=== PATIENT | male | born 1960 | race Caucasian/White ===

== ENCOUNTER 2018-05-26 16:49 | Emergency (ER) | payer SELFPAY ==
[~2018-05-26] VITALS: Ht 172.7 cm; Wt 115.9 kg
[2018-05-26 16:51] VITALS: Ht 172.7 cm; Wt 115.9 kg
[2018-05-26] MEDS ORDERED: ALDACTONE25 MG PO (16:54)
[2018-05-26] MEDS ORDERED: COREG 3.1253.125 MG PO (16:54)
[2018-05-26] MEDS ORDERED: LOW DOSE ASPIRI81 M1 PO (16:55)
[2018-05-26] MEDS ORDERED: CYMBALTA30 MG PO (16:55)
[2018-05-26] MEDS ORDERED: TERAZOSIN HCL2 MG PO (16:56)
[2018-05-26] MEDS ORDERED: ZESTRIL40 MG PO (16:57)
[2018-05-26] MEDS ORDERED: GLUCOPHAGE1000 MG PO (16:58)
[2018-05-26] MEDS ORDERED: ZETIA10 MG PO (16:58)
[2018-05-26] MEDS ORDERED: RANEXA500 MG PO (16:59)
[2018-05-26] MEDS ORDERED: COREG12.5 MG PO (16:59)
[2018-05-26] MEDS ORDERED: ISOSORBIDE DINI10 MG PO (17:00)
[2018-05-26] MEDS ORDERED: FUROSEMIDE20 MG PO (17:01)
[2018-05-26] MEDS ORDERED: GLIPIZIDE10 MG PO (17:01)
[2018-05-26] MEDS ORDERED: LIPITOR80 MG PO (17:01)
[2018-05-26] MEDS ORDERED: ARTIFICIAL TEAR15 ML EACH EYE (17:02)
[2018-05-26] MEDS ORDERED: VOLTAREN75 MG PO (20:05)
[2018-05-26] MEDS ORDERED: BACLOFEN20 M1 PO (20:05)
[2018-05-26 20:39] VITALS: BP 145/75
== END 2018-05-26 20:39 | disposition home or self-care (01) ==
LOC: D.ER 16:49
DX: M54.5 Low back pain (principal); W18.2XXA Fall in (into) shower or empty bathtub, initial encounter; Y93.E1 Activity, personal bathing and showering; Y92.012 Bathroom of single-family (private) house as the place of occurrence of the external cause; E11.9 Type 2 diabetes mellitus without complications; I11.0 Hypertensive heart disease with heart failure; I50.9 Heart failure, unspecified; Z95.1 Presence of aortocoronary bypass graft

== ENCOUNTER 2020-01-14 21:29 | Inpatient (IN) | payer MEDICAID ==
[~2020-01-14] VITALS: Ht 152.4 cm; Wt 104.5 kg
--- NOTE | ~2020-01-14 | HEMODYNAMI ---
PATIENT:NAHID ALARCON MEDICAL RECORD: [id number] : 64 LOCATION:[facility] D.2114 ADMISSION DATE: 01/15/20 Generatedon:01/15/202013:35 Patient name: NAHID ALARCON Patient #: [id number] : 1960 Date of study: 01/15/2020 Page: Of Hemodynamic Procedure Report Patient Data Patient Demographics Procedure consent was obtained First Name: NAHID Gender: Male Last Name: AGNES : 1960 Patient #: [id number] Age: 59 year(s) Race: SSN: [id number] Additional ID: [id number] Contact details Address: [facility] UNKNOWN ADDRESS State: [place] City: [place] Zip code: [address] Past Medical History Allergies: No known allergies Admission Admission Data Admission Date: 01/15/2020 Admission Time: 0:11 Arrival Date: 01/15/2020 Arrival Time: 0:00 Admit Source: Other Insurance Payor: Medicaid Room #: D.2114 [facility] #: [id number] Height (in.): 60 BSA: 1.98 (m2) Height (cm.): 152.4 BMI: 45.01 (kg/m2) Weight (lbs.): 230.47 Weight (kg.): 104.54 Lab Results Lab Result Date: 01/15/2020 Lab Result Time: 0:00 Biochemistry Name Units Result Min Max BUN mg/dl 40 --(----)-* 7 18 CK-MB ng/ml 2.1 --(--*-)-- 0 3.6 Creatinine mg/dl 1.7 --(----)-* 0.6 1.3 eGFR ml/min 44 *-(----)-- 90 120 NONAFRICAN Troponin l ng/ml 0.017 --(-*--)-- 0 0.06 CBC Name Units Result Min Max Hematocrit % 40.4 -*(----)-- 42 54 Hemoglobin g/dl 13.2 -*(----)-- 13.5 17.5 Procedure Procedure Types Cath Procedure Diagnostic Procedure [facility] w/Coronaries w/Grafts Sedation Charges Moderate Sedation up to 15 minutes Procedure Description Procedure Date Procedure Date: 01/15/2020 Procedure Start Time: 13:19 Procedure End Time: 13:35 Procedure Staff Name Function Leticia Castaneda RT Monitor Doreen Huang RT Scrub Amari Rivera RN Nurse Clemente Velez MD Performing Physician Procedure Data Cath Procedure Fluoroscopy Diagnostic fluoroscopy Total fluoroscopy Time: 2.2 time: 2.2 min min Diagnostic fluoroscopy Total fluoroscopy dose: 886 dose: 886 mGy mGy Contrast Material Contrast Material Type Amount (ml) Isovue 370 88 Entry Location Entry Primary Successful Side Size Upsize Upsize Entry Closure Succes sful Closure Location (Fr) 1 (Fr) 2 (Fr) Remarks Device Remarks Femoral Right 5 Fr Exoseal artery Estimated blood loss: 5 ml Diagnostic catheters Device Type Used For End Catheter Placement MULTIPACK JL 4.0 5Fr Procedure catheter MULTIPACK 3DRC 5Fr Procedure catheter MULTIPACK Pigtail 5 Fr Procedure catheter Procedure Complications No complications Procedure Medications Medication Administration Route Dosage Oxygen etCO2 Nasal cannula 2 l/min Lidocaine 2% added to field 20 Heparin Flush Bag added to field 2 bags (1000units/500ml NS) 0.9% NaCl I.V. 100 ml/hr Versed I.V. 2 mg Fentanyl I.V. 50 mcg Versed I.V. 1 mg Fentanyl I.V. 50 mcg Versed I.V. 1 mg Hemodynamics Rest BSA: 1.98 (m2) HGB: 13.2 (g/dl) O2 Consumption: Estimated: 231.24 (ml/min) O2 Co nsumption indexed: Estimated:116.79 (ml/min/m) Heart Rate: 67 (bpm) Pressure Samples Time Site Value (mmHg) Purpose Heart Use Rate(bpm) 13:28 LV 70/6,7 Snapshot 72 13:28 AO 116/62(91) Pullback 73 13:28 LV 116/4,12 Pullback 73 Gradients Valve Time Site 1 Site 2 Mean SEP/DFP Peak To Heart Use (mmHg) (sec/min) Peak Rate (mmHg) (bpm) Aortic 13:28 LV AO 36 35 0 73 116/4,12 116/62(91) Calculations Valve P-P Mean Valve Index Valve Source Name Gradient Area Flow (cm2) Aortic 0 36 0 36 Snapshots Pre Cath Intra NCS Post Cath Vital Signs Time Heart Resp SPO2 etCO2 NIBP (mmHg) Rhythm Pain Sedation Rate (ipm) (%) (mmHg) Status Level (bpm) 12:43:03 72 16 96 0 No Cuff NSR 0 (11) 10(A) , No pain 12:47:29 78 14 94 0 134/67(91) NSR 0 (11) 10(A) , No pain 12:51:49 69 13 96 30.8 123/67(93) NSR 0 (11) 10(A) , No pain 12:56:09 67 15 99 30 139/68(106) NSR 0 (11) 10(A) , No pain 13:00:24 73 12 96 0 117/59(83) NSR 0 (11) 10(A) , No pain 13:04:42 79 11 92 29.3 120/63(98) NSR 0 (11) 10(A) , No pain 13:09:04 72 12 96 36.8 128/55(98) NSR 0 (11) 10(A) , No pain 13:13:20 67 13 98 32.3 130/69(93) NSR 0 (11) 10(A) , No pain 13:17:40 67 14 98 29.2 130/69(110) NSR 0 (11) 10(A) , No pain 13:21:56 73 14 96 34.5 123/68(97) NSR 0 (11) 9(A) , No pain 13:26:10 81 11 93 25.5 127/73(106) NSR 0 (11) 9(A) , No pain 13:30:30 69 11 97 27 147/73(105) NSR 0 (11) 10(A) , No pain 13:34:54 67 10 97 29.2 142/77(113) NSR 0 (11) 10(A) , No pain Medications Time Medication Route Dose Verified Delivered Reason Notes Eff ectiveness by by 12:42:34 Oxygen etCO2 2 Alexandre Buffie used for Nasal l/min Narendra Rivera blasting contract miner cannula 12:42:41 Lidocaine 2% added 20ml Alexandre Alexandre for local to vial Narendra Mackey MD anesthetic field 12:42:49 Heparin Flush added 2 Alexandre Alexandre used for Bag to bags Narendra Mackey MD procedure (1000units/500ml field NS) 12:42:59 0.9% NaCl I.V. 100 Alexandre Buffie Per ml/hr Narendra Rivera RN physician 13:18:46 Versed I.V. 2 mg Clemente Buffie for [facility] RN sedation 13:18:52 Fentanyl I.V. 50 Clemente Buffie for [facility] RN sedation 13:22:22 Versed I.V. 1 mg Clemente Buffie for [facility] RN sedation 13:22:27 Fentanyl I.V. 50 Clemente Buffie for [facility] RN sedation 13:27:31 Versed I.V. 1 mg Clemente Buffie for [facility] RN sedation Procedure Log Time Note 9:53:33 Informed consent obtained and on chart 9:54:16 Diagnostic Cath Status : Urgent 9:54:33 Time tracking: Regular hours (M-F 7:00 - 5:00) 9:54:38 Plan of Care:Hemodynamics will remain stable., Cardiac rhythm will remain stable., Comfort level will be maintained., Respiratory function will remain adequate., Patient/ family verbilizes understanding of procedure., Procedure tolerated without complication., Recovers from procedure without complications.. 12:12:23 Amari Rivera RN sent for patient. Start room use. 12:25:58 Risk of Mortality: 0.2 12:26:02 Risk of blood transfusion: 2.0 12:26:07 Risk of ZARINA: 7.1 12:39:05 Admit Source: Other 12:39:08 Procedure Status Elective Heart Cath (OP). 12:39:15 Patient received from Med II to CCL 1 Alert and oriented. Tansferred to table in Supine position. 12:39:16 Warm blankets applied, and lonnie hugger turned on for patient comfort. 12:39:17 Correct patient and procedure confirmed by team. 12:39:17 ECG and BP/O2 sat monitors applied to patient. 12:39:36 Pre-procedure instructions explained to patient. 12:39:37 Pre-op teaching completed and patient verbalized understanding. 12:39:38 H&P Date Dictated: 01/15/2020 Within 30 days and on chart.. 12:39:41 Family unavailable. 12:39:44 Patient NPO since Midnight. 12:39:52 Patient allergic to No known allergies 12:39:54 Is the patient allergic to Iodine/contrast media? No. 12:39:56 Was the patient premedicated? N/A 12:40:42 Lab Result : Creatinine 1.7 mg/dl 12::42 Lab Result : BUN 40 mg/dl 12:: Lab Result : CK-MB 2.1 ng/ml 12:: Lab Result : eGFR NONAFRICAN 44 ml/min 12:: Lab Result : Troponin l 0.017 ng/ml 12:: Lab Result : Hematocrit 40.4 % :: Lab Result : Hemoglobin 13.2 g/dl 12:41:54 Arrival Date: 01/15/2020 12:00:00 AM 12:41:58 Patient Height : 60 inches 12:42:02 Patient Weight : 230.47 lbs 12:42:11 Insurance Payor : Medicaid 12:42:20 Vital chart was started 12:42:34 Oxygen 2 l/min etCO2 Nasal cannula was administered by Amari Rivera RN; used for procedure; Verbal order read back and verified. 12:42:41 Lidocaine 2% 20ml vial added to field was administered by Alexandre Mackey MD; for local anesthetic; Verbal order read back and verified. 12:42:48 Lab results completed and on chart. 12:42:49 Heparin Flush Bag (1000units/500ml NS) 2 bags added to field was administered by Alexandre Mackey MD; used for procedure; Verbal order read back and verified. 12:42:51 Stress Test: no; N/A ? 12:42:53 Alarms reviewed by R. N. 12:42:54 Sharps counted by scrub and verified by R.N. 12:42:59 0.9% NaCl 100 ml/hr I.V. was administered by Amari Rivera RN; Per physician; Verbal order read back and verified. 12:43:13 Full Disclosure recording started 12:43:17 Rhythm: sinus rhythm 12:43:39 Is patient on blood thinner?No 12:43:41 Patient diabetic? Yes. 12:43:43 If diabetic: On Metformin? No 12:43:44 ----Pre-sedation anethsthesia assessment.---- 12:43:48 Previous problem with sedation/anesthesia? No ? 12:43:49 Snore? Yes 12:43:51 Sleep apnea? Unknown 12:43:52 Deviated septum? No 12:43:53 Opens mouth fully? Yes 12:43:54 Sticks out tongue? Yes 12:43:58 Airway obstruction? Yes CHF 12:44:02 Dentures? No ? 12:44:07 Pre procedure: right dorsailis pedis pulse 1+ Palpable, but thready & weak; easily obliterated 12:44:11 Patient pain scale 0/10 ?. 12:44:21 IV patent on arrival in left antecubital with 0.9% NaCl at [facility]. 12:44:26 Right groin area was prepped with chlora-prep and draped in sterile fashion 12:44:29 Use device set Femoral Dx 12:44:31 ACIST Syringe (88599) opened to sterile field. 12:44:31 Bag Decanter (2002S) opened to sterile field. 12:44:32 Medline Cath Pack ([id number]) opened to sterile field. 12:44:33 ACIST Hand Control (06041) opened to sterile field. 12:44:33 ACIST Manifold (47298) opened to sterile field. 12:44:34 DIAGNOSTIC Multipack 5Fr catheter set (HZ8736) opened to sterile field. 12:44:35 SHEATH 5FR [place] (HSO232) opened to sterile field. 12:44:35 EMERALD Guide Wire (599-558) opened to sterile field. 12:50:03 Baseline sample Acquired. 12:50:52 ACC Patient presents with Stable Angina CCS Anginal Class 2--Slight limitation of ordinary activity. 13:17:55 --------ALL STOP TIME OUT------ 13:17:56 Final Timeout: patient, procedure, and site verified with staff and physician. All members of the team are in agreement. 13:18:05 Right groin site verified by team. 13:18:31 Fire Safety Assessment: A--An alcohol-based skin anteseptic being used preoperatively., C--Open oxygen or nitrous oxide is being used., D--An ESU, laser, or fiber-optic light is being used. 13:18:35 Physical assessment completed. ASA score P 2 - A patient with mild systemic disease as per Clemente Velez MD. 13:18:38 3b) 30-44 Moderately reduced kidney function. 13:18:41 Maximum allowable contrast dose (3.7 X eGFR X 0.75)122 ml. 13:18:46 Versed 2 mg I.V. was administered by Amari Rivera RN; for sedation; Verbal order read back and verified. 13:18:52 Fentanyl 50 mcg I.V. was administered by Amari Rivera RN; for sedation; Verbal order read back and verified. 13:18:55 Sedation plan: IV Moderate Sedation Medication:Versed, Fentanyl 13:19:44 Procedure started. 13:19:49 Local anesthetic to right femoral artery with Lidocaine 2% by Clemente Velez MD.INITIAL ACCESS ONLY 13:20:54 A 5 Fr sheath was inserted into the Right Femoral artery 13:21:00 A MULTIPACK JL 4.0 5Fr catheter was advanced over the wire and used for Procedure. 13:21:36 LCA angiography performed. 13:21:38 Injector settings: Ml/sec: 3, Volume: 6, 13:22:17 Catheter removed. 13:22:22 Versed 1 mg I.V. was administered by Amari Rivera RN; for sedation; Verbal order read back and verified. 13:22:27 Fentanyl 50 mcg I.V. was administered by Amari Rivera RN; for sedation; Verbal order read back and verified. 13:22:37 A MULTIPACK 3DRC 5Fr catheter was advanced over the wire and used for Procedure. 13:22:59 RCA angiography performed. 13:23:01 Injector settings: Ml/sec: 3, Volume: 6, 13:23:09 ACCDominant side:Left 13:23:36 SVG to Diag angiography performed. 13:24:55 Catheter removed. 13:25:33 GUIDE 5FR AR1.0 catheter ([id number]) opened to sterile field. 13:26:45 HUERTA to LAD angiography performed. 13:27:31 Versed 1 mg I.V. was administered by Amari Rivera RN; for sedation; Verbal order read back and verified. 13:27:31 A MULTIPACK Pigtail 5 Fr catheter was advanced over the wire and used for Procedure. 13:27:36 LV gram done using GARCIA 13::57 Injector settings: Ml/sec: 5, Volume: 15, 13:28:09 LV hemodynamics recorded. 13:28:18 EF : 30 % 13:28:29 Catheter removed. 13:28:39 EXOSEAL 5Fr (EX500) opened to sterile field. 13:29:05 Sheath removed intact; hemostasis achieved with Exoseal to the Right Femoral artery. 13:29: Fluoroscopy time 02.20 minutes. 13:29:15 Flurop Dose total: 886 13:: Fluoroscopy dose: 886 mGy 13:: Dose Area Product 75975 mGy/cm. 13:: Contrast amount:Isovue 370 88ml. 13:29:29 Maximum allowable dose exceeded? No. 13:29:30 Sharps counted by scrub and verified by R.N. 13:29:31 Procedure ended.(Physican Out) 13:29:43 Post Procedure Pulses reassessed and unchanged 13:29:45 Post procedure: right dorsailis pedis pulse 1+ Palpable, but thready & weak; easily obliterated. 13:29:49 Post-procedure physical assessment completed. ASA score P 2 - A patient with mild systemic disease as per Clemente Velez MD. 13:29:53 Post procedure rhythm: unchanged. 13:30:31 Estimated blood loss: 5 ml 13:30:33 Post procedure instruction explained to patient.Patient verbalizes understanding. 13:30:34 Patient needs reinforcement of post procedure teaching. 13::57 Procedure type changed to Cath procedure, Diagnostic procedure, LHC, C w/Coronaries w/Grafts, Sedation Charges, Moderate Sedation up to 15 minutes 13:31:11 Procedure and supply charges have been captured, reviewed, submitted and are correct. 13:31:16 Procedure Complication : No complications 13:31:20 [facility] Findings: ASHA- will discuss options w/ pt 13:31:23 Operative report dictated upon procedure completion. 13:31:23 See physician's report for complete and final results. 13:31:26 Report given to [facility]. 13:31:29 Patient transfered to [facility] with Bed. 13:35:00 Vital chart was stopped 13:35:02 Procedure ended. 13:35:02 Full Disclosure recording stopped 13:35:06 End room use (Document Last) 13:35:20 End room use (Document Last) 13:35:35 End room use (Document Last) Device Usage Item Name Manufacture Quantity Catalog Hospital Part Current Minimal L ot# / Number Charge Number Stock Stock Serial# Code ACIST Acist 1 63178 419519 959190 483069 20 Syringe Medical (56863) Systems Inc Bag Microtek 1 2001S 556135 77687 318952 5 Decanter Medical Inc. () Medline Medline 1 [id number] 040938 24797 942557 5 Cath Pack ([id number]) ACIST Hand Acist 1 04329 046805 969080 891051 5 Control Medical (86247) Systems Inc ACIST Acist 1 55570 920465 279839 116959 5 Manifold Medical (88885) Systems Inc DIAGNOSTIC Cardinal 1 LZ9998 995311 74506 517234 30 Multipack Health 5Fr catheter set (CG6286) SHEATH 5FR Terumo 1 DZT361 733370 400024 832795 5 [place] (UJR122) EMERALD Cardinal 1 502-455 158667 013717 967282 5 Guide Wire Health (502-455) MULTIPACK Cardinal 1 405003 5 JL 4.0 5Fr Health catheter MULTIPACK Cardinal 1 078199 5 3DRC 5Fr Health catheter GUIDE 5FR Medtronic 1 KE8LX74 957773 760166 700939 1 AR1.0 catheter (BB5UO67) MULTIPACK Cardinal 1 964871 5 Pigtail 5 Health Fr catheter EXOSEAL 5Fr Cardinal 1 EX500 892518 801124 228637 10 (EX500) Health Signature Audit Melvin Stage Time Signature Unsigned Intra-Procedure 01/15/2020 Leticia Castaneda 1:35:20 PM RT(R) Intra-Procedure 01/15/2020 Amari Rivera RN 1:35:35 PM Intra-Procedure 01/15/2020 Clemente Rabago 1:35:50 PM Mark [place] [id number] [place] [address]
--- NOTE | 2020-01-14 19:25 | NUR ---
PT SITTING UP IN BED EATING A SANDWICH. DRESSING TO RIGHT GROIN FROM HEART CATH IS C/D/I. HE WANTS TO TAKE A SHOWER. LET HIM KNOW THAT HE NEEDS TO WAIT 24 HOURS AFTER HEART CATH FOR SHOWER BUT OFFERED TO GET HIM SUPPLIES TO SPONGE OFF. HE STATES HE WILL WAIT UNTIL TOMORROW AFTERNOON TO SHOWER. HE DENIES PAIN OR NEEDS. BED IS LOW AND CALL LIGHT WITHIN REACH.
[~2020-01-14 21:29] MED LIST: ALDACTONE25 MG PO; ARTIFICIAL TEAR15 ML EACH EYE; BACLOFEN20 M1 PO; COREG 3.1253.125 MG PO; COREG12.5 MG PO; CYMBALTA30 MG PO; FUROSEMIDE20 MG PO; GLIPIZIDE10 MG PO; GLUCOPHAGE1000 MG PO; ISOSORBIDE DINI10 MG PO; LIPITOR80 MG PO; LOW DOSE ASPIRI81 M1 PO; RANEXA500 MG PO; TERAZOSIN HCL2 MG PO; VOLTAREN75 MG PO; ZESTRIL40 MG PO; ZETIA10 MG PO
[2020-01-14 21:57] LABS: ANION GAP 8.1 mmol/L (8-16); APTT 29.2 SECONDS (22.8-39.4); CALCIUM 9.6 mg/dL (8.5-10.1); CARBON DIOXIDE 30.5 mmol/L (21.0-32.0); CREATININE - SERUM 1.7 mg/dL (0.6-1.3); INR 1.03 (0.85-1.17); POTASSIUM - SERUM 3.6 mmol/L (3.5-5.1); PROTIME 13.4 SECONDS (11.6-15.0)
[2020-01-14 21:58] LABS: BASOPHILS 0.5 % (0-2); EOSINOPHILS 3.2 % (0-7); HEMATOCRIT 40.4 % (42.0-54.0); HEMOGLOBIN 13.2 g/dL (13.5-17.5); IMMATURE GRANULOCYTES 0.1 % (0-5); LYMPHOCYTES 21.6 % (15-50); MCH 31.1 pg (26.0-34.0); MCHC 32.7 g/dL (31.0-37.0); MCV 95.1 fL (80.0-100.0); MONOCYTES 6.7 % (2-11); NEUTROPHILS 67.9 % (40-80); PLATELET COUNT 192 10x3/uL (130-400); RBC 4.25 10x6/uL (4.20-6.10); RDW 13.2 % (11.5-14.5); WBC 7.5 10x3/uL (4.8-10.8)
[2020-01-14 22:12] LABS: ALBUMIN 3.6 g/dL (3.4-5.0); BILIRUBIN - TOTAL 0.34 mg/dL (0.2-1.3); PROTEIN - SERUM 7.6 g/dL (6.4-8.2); TROPONIN-I 0.028 ng/mL (0.000-0.060)
[2020-01-14 23:54] VITALS: BP 143/68
[2020-01-15] VITALS (7 sets, daily range): BP systolic 132–220; BP diastolic 63–140; Ht 152.4 cm; Wt 104.5 kg
[2020-01-15 04:19] LABS: CKMB 2.1 U/L (0.0-3.6); CREATINE KINASE 83 UL (21-232)
[2020-01-15 04:25] LABS: TROPONIN-I < 0.017 ng/mL (0.000-0.060)
[2020-01-15 07:46] LABS: BASOPHILS 0.4 % (0-2); EOSINOPHILS 3.6 % (0-7); HEMATOCRIT 37.5 % (42.0-54.0); HEMOGLOBIN 12.3 g/dL (13.5-17.5); IMMATURE GRANULOCYTES 0.1 % (0-5); LYMPHOCYTES 25.2 % (15-50); MCH 31.1 pg (26.0-34.0); MCHC 32.8 g/dL (31.0-37.0); MCV 94.9 fL (80.0-100.0); MEAN PLATELET VOLUME 11.5 fL (7.4-10.4); MONOCYTES 8.4 % (2-11); NEUTROPHILS 62.3 % (40-80); PLATELET COUNT 184 10x3/uL (130-400); RBC 3.95 10x6/uL (4.20-6.10); RDW 13.1 % (11.5-14.5); WBC 7.1 10x3/uL (4.8-10.8)
[2020-01-15 07:49] LABS: ANION GAP 11.3 mmol/L (8-16); CALCIUM 9.3 mg/dL (8.5-10.1); CARBON DIOXIDE 27.2 mmol/L (21.0-32.0); CHOL - HDL RATIO 3.5 ratio (2.3-4.9); CREATININE - SERUM 1.6 mg/dL (0.6-1.3); POTASSIUM - SERUM 3.5 mmol/L (3.5-5.1)
--- NOTE | 2020-01-15 08:30 | NUR ---
BLOOD PRESSURE TAKEN MANUALLY 220/140, GONZALO AMARO NOTIFIED AND ORDERED RECEIVED FOR HYDRALAZINE 10MG IV XS 1,
[2020-01-15 09:26] LABS: BILIRUBIN NEGATIVE (NEGATIVE); GLUCOSE NEGATIVE (NEGATIVE); KETONE NEGATIVE (NEGATIVE); NITRITE NEGATIVE (NEGATIVE); UROBILINOGEN NORMAL (NORMAL)
--- NOTE | 2020-01-15 09:30 | NUR ---
BLOOD PRESSURE MANUALLY 140/90
[2020-01-15 11:15] LABS: CKMB 2.3 U/L (0.0-3.6); CREATINE KINASE 73 UL (21-232); TROPONIN-I 0.021 ng/mL (0.000-0.060)
--- NOTE | 2020-01-15 12:40 | NUR ---
TO GINNER HELPER VIA STRETCHER
[2020-01-16 04:00] VITALS: BP 160/80
[2020-01-16 05:56] LABS: BASOPHILS 0.4 % (0-2); EOSINOPHILS 3.6 % (0-7); HEMATOCRIT 38.3 % (42.0-54.0); HEMOGLOBIN 12.5 g/dL (13.5-17.5); IMMATURE GRANULOCYTES 0.1 % (0-5); LYMPHOCYTES 19.7 % (15-50); MCH 30.9 pg (26.0-34.0); MCHC 32.6 g/dL (31.0-37.0); MCV 94.8 fL (80.0-100.0); MEAN PLATELET VOLUME 10.8 fL (7.4-10.4); MONOCYTES 9.8 % (2-11); NEUTROPHILS 66.4 % (40-80); PLATELET COUNT 183 10x3/uL (130-400); RBC 4.04 10x6/uL (4.20-6.10); RDW 13.2 % (11.5-14.5); WBC 6.8 10x3/uL (4.8-10.8)
[2020-01-16 07:01] LABS: ALBUMIN 3.1 g/dL (3.4-5.0); ANION GAP 13.2 mmol/L (8-16); BILIRUBIN - TOTAL 0.37 mg/dL (0.2-1.3); CALCIUM 8.5 mg/dL (8.5-10.1); CARBON DIOXIDE 26.8 mmol/L (21.0-32.0); CREATININE - SERUM 1.5 mg/dL (0.6-1.3); PROTEIN - SERUM 6.2 g/dL (6.4-8.2)
[2020-01-16 07:10] LABS: UDS - AMPHET NEGATIVE QUAL (NEGATIVE); UDS - BARB NEGATIVE QUAL (NEGATIVE); UDS - BENZO POSITIVE QUAL (NEGATIVE); UDS - COCAINE NEGATIVE QUAL (NEGATIVE); UDS - OPIATE NEGATIVE QUAL (NEGATIVE); UDS - PCP NEGATIVE QUAL (NEGATIVE); UDS - THC NEGATIVE QUAL (NEGATIVE)
[2020-01-16 09:11] VITALS: BP 146/71
[2020-01-16] MEDS ORDERED: NICODERM CQ1 EAC3 TRANSDERM (09:53)
[2020-01-16] MEDS ORDERED: COREG12.5 MG PO (10:07)
[2020-01-16] MEDS ORDERED: ISOSORBIDE DINI10 MG PO (10:07)
[2020-01-16] MEDS ORDERED: COREG 3.1253.125 MG PO (10:07)
[2020-01-16] MEDS ORDERED: LIPITOR80 MG PO (10:07)
[2020-01-16] MEDS ORDERED: FUROSEMIDE20 MG PO (10:08)
[2020-01-16] MEDS ORDERED: LOW DOSE ASPIRI81 M1 PO (10:08)
[2020-01-16] MEDS ORDERED: ALDACTONE25 MG PO (10:08)
[2020-01-16] MEDS ORDERED: CYMBALTA30 MG PO (10:08)
[2020-01-16] MEDS ORDERED: GLIPIZIDE10 MG PO (10:09)
--- NOTE | 2020-01-16 11:30 | OP ---
PATIENT NAME: NAHID ALARCON MEDICAL RECORD: [id number] :64 LOCATION:D.M2 D.2114 ADMISSION DATE:01/15/20 SURGEON: PRANAY LONGORIA MD DATE OF OPERATION: 01/15/2020 PROCEDURE: Left heart catheterization, selective coronary angiography, right femoral artery approach. CATHETERS: A 5-Serbian sheath, 5/4 left and right Talisha, 5/4 pig. The procedure was well tolerated and the patient returned to the [place], sheath removed. ExoSeal device placed. FINDINGS: Left ventriculography, 30-degree GARCIA view shows global hypokinesis with reduced EF, estimated EF 30% to 35%. CORONARY ANATOMY: LEFT MAIN: Left main is about 50% stenosis. LAD: LAD fills for a short period of time, then seen filling via competitive flow. CIRCUMFLEX: Circumflex has about a 30% stenosis, nothing flow restrictive. RIGHT CORONARY ARTERY: Totally occluded filling well via left to left collaterals. BYPASS GRAFTS: 1. HUERTA either to the OM system is patent with previously placed stent that is patent. 2. HUERTA to LAD is widely patent and fills the right via left to right collaterals. IMPRESSION: Patent graft to the circumflex and the left anterior descending, right filling well via collaterals, for medical management of his coronary artery disease and cardiomyopathy. TRANSINT:[id number] Voice Confirmation ID: [id number] DOCUMENT ID: [id number] PRANAY LONGORIA MD at 1130 CC: [id number] DICTATION DATE: 01/15/20 1348 HOSTING ENGINEER: 01/15/20 2136 ADM IN [place] [id number] [place] [address]
[2020-01-16 12:04] VITALS: BP 125/66
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
--- NOTE | 2020-01-16 12:59 | NUR ---
IV REMOVED AND DRESSING APPLIED, DISCHARGE PAPERS DISCUSSED WITH PATIENT. REQUESTED SANDWICH AND GIVEN. BUS PASS AND TO ED EXIT VIA WHEELCHAIR.
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
== END 2020-01-16 13:01 | disposition home or self-care (01) | DRG 286 ==
LOC: D.ER 21:29 → OBSVTIME 23:50 → D.M2 23:50 → D.ER 01-15 00:11 → OBSVTIME 01-15 18:57 → D.M2 01-15 18:58
PROVIDERS: Family Medicine; Internal Medicine Cardiovascular Disease; Internal Medicine Interventional Cardiology; ADMIT Family Medicine; ATTEND Family Medicine
PROC: B2181ZZ Fluoroscopy of Left Internal Mammary Bypass Graft using Low Osmolar Contrast (ICD-10-PCS; 2020-01-15)
PROC: B2121ZZ Fluoroscopy of Single Coronary Artery Bypass Graft using Low Osmolar Contrast (ICD-10-PCS; 2020-01-15)
PROC: B2151ZZ Fluoroscopy of Left Heart using Low Osmolar Contrast (ICD-10-PCS; 2020-01-15)
PROC: 4A023N7 Measurement of Cardiac Sampling and Pressure, Left Heart, Percutaneous Approach (ICD-10-PCS; 2020-01-15)
PROC: B2111ZZ Fluoroscopy of Multiple Coronary Arteries using Low Osmolar Contrast (ICD-10-PCS; principal; 2020-01-15 12:12)
DX: I25.110 Atherosclerotic heart disease of native coronary artery with unstable angina pectoris (principal); I50.23 Acute on chronic systolic (congestive) heart failure; N17.9 Acute kidney failure, unspecified; I42.9 Cardiomyopathy, unspecified; D64.9 Anemia, unspecified; E11.65 Type 2 diabetes mellitus with hyperglycemia; E78.5 Hyperlipidemia, unspecified; I11.0 Hypertensive heart disease with heart failure

== ENCOUNTER 2020-01-21 01:37 | Inpatient (IN) | payer MEDICAID ==
[~2020-01-21] VITALS: Ht 175.3 cm; Wt 104.3 kg
[2020-01-21] VITALS (8 sets, daily range): BP systolic 142–185; BP diastolic 73–96
[~2020-01-21 01:37] MED LIST changes: +NICODERM CQ1 EAC3 TRANSDERM
[2020-01-21 02:14] LABS: BASOPHILS 0.5 % (0-2); EOSINOPHILS 3.9 % (0-7); HEMATOCRIT 38.5 % (42.0-54.0); HEMOGLOBIN 12.6 g/dL (13.5-17.5); IMMATURE GRANULOCYTES 0.3 % (0-5); MCH 31.2 pg (26.0-34.0); MCHC 32.7 g/dL (31.0-37.0); MCV 95.3 fL (80.0-100.0); MEAN PLATELET VOLUME 10.7 fL (7.4-10.4); MONOCYTES 8.4 % (2-11); NEUTROPHILS 69.9 % (40-80); PLATELET COUNT 205 10x3/uL (130-400); RBC 4.04 10x6/uL (4.20-6.10); RDW 13.2 % (11.5-14.5)
--- NOTE | 2020-01-21 02:19 | NUR ---
SCREENER CONTACTED TO REVIEW PATIENT
[2020-01-21 02:26] LABS: CALC OSMOLALITY 282 mosm/kg (275-300); CALCIUM 8.5 mg/dL (8.5-10.1); CHLORIDE - SERUM 102 mmol/L (98-107); CREATININE - SERUM 1.4 mg/dL (0.6-1.3); POTASSIUM - SERUM 3.7 mmol/L (3.5-5.1); SODIUM 137 mmol/L (136-145); UREA NITROGEN 21 mg/dL (7-18); eGFR NON AFRICAN AMERICAN 55 mL/min (90-120)
[2020-01-21 02:27] LABS: APTT 29.3 SECONDS (22.8-39.4); GLUCOSE 203 mg/dL (74-106); INR 0.96 (0.85-1.17); PROTIME 12.8 SECONDS (11.6-15.0)
[2020-01-21 02:40] LABS: ALBUMIN 3.3 g/dL (3.4-5.0); ALKALINE PHOSPHATASE 127 U/L (30-120); ALT (SGPT) 26 U/L (10-68); CKMB 2.2 U/L (0.0-3.6); CREATINE KINASE 97 UL (21-232); MAGNESIUM - SERUM 1.9 mg/dL (1.8-2.4); PROTEIN - SERUM 7.2 g/dL (6.4-8.2); TROPONIN-I 0.024 ng/mL (0.000-0.060)
--- NOTE | 2020-01-21 03:01 | NUR ---
200ML CLEAR YELLOW URINE VOIDED AT THIS TIME.
--- NOTE | 2020-01-21 05:23 | NUR ---
DR. ROBERTS NOTIFIED AND SITTER ORDERED. SITTER AT BEDSIDE. NOTIFIED CHARGE NURSE AND ATTENDING IN REGARDS TO ASSESSMENT FINDINGS. RESOURCES GIVEN TO PATIENT AND SAFETY PLAN INITIATED.
--- NOTE | 2020-01-21 22:00 | NUR ---
A&O X 4. PT REPORTS BLINDNESS, BUT ABLE TO SEE SHAPES AND OUTLINES AND OBJECTS UP CLOSE. AMBULATES AD ARACELI. CONSUMED SANDWICH TRAY. SHOWER SUPPLIES GIVEN. CTM.
--- NOTE | 2020-01-22 03:00 | NUR ---
DRESSING APPLIED TO LEFT FOOT PER ORDER.
--- NOTE | 2020-01-22 03:54 | NUR ---
I have reviewed this patient and I concur with the Shift Assessment completed by the Licensed Practical Nurse today this shift.
[2020-01-22 05:34] LABS: BASOPHILS 0.5 % (0-2); EOSINOPHILS 3.5 % (0-7); HEMATOCRIT 36.1 % (42.0-54.0); HEMOGLOBIN 11.9 g/dL (13.5-17.5); IMMATURE GRANULOCYTES 0.3 % (0-5); LYMPHOCYTES 16.9 % (15-50); MCH 31.2 pg (26.0-34.0); MCV 94.5 fL (80.0-100.0); MONOCYTES 7.8 % (2-11); PLATELET COUNT 195 10x3/uL (130-400); RBC 3.82 10x6/uL (4.20-6.10); RDW 13.3 % (11.5-14.5); WBC 7.7 10x3/uL (4.8-10.8)
[2020-01-22 06:03] LABS: ALBUMIN 3.1 g/dL (3.4-5.0); ANION GAP 12.2 mmol/L (8-16); BILIRUBIN - TOTAL 0.36 mg/dL (0.2-1.3); CALCIUM 8.8 mg/dL (8.5-10.1); CARBON DIOXIDE 26.7 mmol/L (21.0-32.0); CREATININE - SERUM 1.6 mg/dL (0.6-1.3); MAGNESIUM - SERUM 1.9 mg/dL (1.8-2.4); POTASSIUM - SERUM 3.9 mmol/L (3.5-5.1); PROTEIN - SERUM 6.5 g/dL (6.4-8.2)
[2020-01-22 08:00] VITALS: BP 151/79
[2020-01-22 10:50] VITALS: BMI 33.9
[2020-01-22 12:00] VITALS: BP 105/54
[2020-01-22 15:32] VITALS: BP 98/56
[2020-01-22 20:00] VITALS: BP 138/67
[2020-01-23 05:36] LABS: BASOPHILS 0.2 % (0-2); HEMATOCRIT 36.6 % (42.0-54.0); HEMOGLOBIN 11.7 g/dL (13.5-17.5); IMMATURE GRANULOCYTES 0.2 % (0-5); LYMPHOCYTES 12.5 % (15-50); MCH 30.5 pg (26.0-34.0); MCV 95.3 fL (80.0-100.0); MEAN PLATELET VOLUME 10.7 fL (7.4-10.4); MONOCYTES 7.2 % (2-11); NEUTROPHILS 76.9 % (40-80); PLATELET COUNT 195 10x3/uL (130-400); RBC 3.84 10x6/uL (4.20-6.10); RDW 13.4 % (11.5-14.5); WBC 8.3 10x3/uL (4.8-10.8)
[2020-01-23 05:51] LABS: ALBUMIN 3.1 g/dL (3.4-5.0); ANION GAP 10.2 mmol/L (8-16); BILIRUBIN - TOTAL 0.35 mg/dL (0.2-1.3); CALCIUM 8.8 mg/dL (8.5-10.1); CARBON DIOXIDE 27.3 mmol/L (21.0-32.0); CREATININE - SERUM 1.5 mg/dL (0.6-1.3); PROTEIN - SERUM 6.7 g/dL (6.4-8.2)
[2020-01-23 05:52] LABS: POTASSIUM - SERUM 4.5 mmol/L (3.5-5.1)
[2020-01-23 09:26] VITALS: BP 141/75
[2020-01-23 12:56] VITALS: BP 96/51
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
--- NOTE | 2020-01-23 15:41 | MORECARE ---
CASE MANAGEMENT DISCHARGE SUMMARY PATIENT: NAHID ALARCON UNIT: [id number] ADM DATE: 01/21/20 AGE: 59 : 64 SEX: M ROOM/BED: D.2229 AUTHOR: KEELY HITCHCOCK PHYSICIAN: REFERRING PHYSICIAN: RAÚL BRANNON MD DATE OF SERVICE: 01/23/20 Discharge Plan Patient Name: NAHID ALARCON Facility: [facility]:[place] : 1960 Planned Disposition: Anticipated Discharge Date: Discharge Date: Expected LOS: Initial Reviewer: [email or web address] Initial Review Date: 01/21/2020 Generated: 01/23/20 4:40 pm Comments DCP- Discharge Planning Updated by [email or web address]: Ann Marie Wells on 01/23/20 1:[address] Patient Name: NAHID ALARCON Admission Status: ER Accout number: [id number] Admission Date: 01-21-2020 : 1960 Admission Diagnosis: Attending: SALUD, Current LOS: 2 Anticipated DC Date: Planned Disposition: Primary Insurance: [place]ID [place] Discharge Planning Comments: RECEIVED CALL BACK FROM [facility] AND THEY DECLINED DUE TO HIS MEDICAL ISSUES. COVID AND TOX SCREEN HAS BEEN ORDERED. Vp Strategic Partnerships: Ann Marie Wells DCP- Discharge Planning Updated by [id number]: Ann Marie Wells on 01/23/20 12:[address] Patient Name: NAHID ALARCON Admission Status: ER Accout number: [id number] Admission Date: 01-21-2020 : 1960 Admission Diagnosis: Attending: SALUD, Current LOS: 2 Anticipated DC Date: Planned Disposition: Primary Insurance: MED[place]ID [place] Discharge Planning Comments: REFERRAL FAXED TO [facility], SPOKE WITH LOUIS AT [facility] AND WAITING CALL BACK. Vp Strategic Partnerships: Ann Marie Wells External Providers External Provider: [facility] Next Contact Date: Service Request Date: Service Type: Resolution: Reviewer: Comments: External Provider: [facility] (Inpt Adult Psych) Next Contact Date: Service Request Date: Service Type: Resolution: Reviewer: Comments: Patient Name: NAHID ALARCON Page 34076 at 1541 All edits/amendments must be made on the electronic document DICTATION DATE: 01/23/201539 TOURIST INFORMATION OFFICER: JUNIOR 01/23/201539 RPT#: [id number] DC DATE: STATUS: ADM IN [facility] [address] [place] [address] END OF REPORT
--- NOTE | 2020-01-23 15:51 | MORECARE ---
CASE MANAGEMENT DISCHARGE SUMMARY PATIENT: NAHID ALARCON UNIT: [id number] ADM DATE: 01/21/20 AGE: 59 : 64 SEX: M ROOM/BED: D.2229 AUTHOR: KEELY HITCHCOCK PHYSICIAN: REFERRING PHYSICIAN: RAÚL BRANNON MD DATE OF SERVICE: 01/23/20 Discharge Plan Patient Name: NAHID ALARCON Facility: [facility]:[place] : 1960 Planned Disposition: Anticipated Discharge Date: Discharge Date: Expected LOS: Initial Reviewer: [email or web address] Initial Review Date: 01/21/2020 Generated: 01/23/20 4:50 pm Comments DCP- Discharge Planning Updated by [id number]: Ann Marie Wells on 01/23/20 1:[address] Patient Name: NAHID ALARCON Admission Status: ER Accout number: [id number] Admission Date: 01-21-2020 : 1960 Admission Diagnosis: Attending: SALUD, Current LOS: 2 Anticipated DC Date: Planned Disposition: Primary Insurance: MED[place]ID [place] Discharge Planning Comments: RECEIVED CALL BACK FROM [facility] AND THEY DECLINED DUE TO HIS MEDICAL ISSUES. COVID AND TOX SCREEN HAS BEEN ORDERED. Community Program Assistant: Ann Marie Wells DCP- Discharge Planning Updated by [email or web address]: Ann Marie Wells on 01/23/20 12:[address] Patient Name: NAHID ALARCON Admission Status: ER Accout number: [id number] Admission Date: 01-21-2020 : 1960 Admission Diagnosis: Attending: SALUD, Current LOS: 2 Anticipated DC Date: Planned Disposition: Primary Insurance: [place]ID [place] Discharge Planning Comments: REFERRAL FAXED TO [facility], SPOKE WITH LOUIS AT [facility] AND WAITING CALL BACK. Community Program Assistant: Ann Marie Wells External Providers External Provider: [facility] Next Contact Date: Service Request Date: Service Type: Resolution: Reviewer: Comments: Last DP export: 01/23/20 2:41 p Patient Name: NAHID ALARCON Page 23371 at 1551 All edits/amendments must be made on the electronic document DICTATION DATE: 01/23/201549 VICTIMS ADVOCATE CLERK/SPECIALIST: JUNIOR 01/23/201549 RPT#: [id number] DC DATE: STATUS: ADM IN [facility] [address] [place] [address] END OF REPORT
--- NOTE | 2020-01-23 16:00 | MORECARE ---
CASE MANAGEMENT DISCHARGE SUMMARY PATIENT: NAHID ALARCON UNIT: [id number] ADM DATE: 01/21/20 AGE: 59 : 64 SEX: M ROOM/BED: D.2229 AUTHOR: KEELY HITCHCOCK PHYSICIAN: REFERRING PHYSICIAN: RAÚL BRANNON MD DATE OF SERVICE: 01/23/20 Discharge Plan Patient Name: NAHID ALARCON Facility: [facility]:[place] : 1960 Planned Disposition: Anticipated Discharge Date: Discharge Date: Expected LOS: Initial Reviewer: [id number] Initial Review Date: 01/21/2020 Generated: 01/23/20 4:59 pm Comments DCP- Discharge Planning Updated by [id number]: Ann Marie Wells on 01/23/20 2:[address] Patient Name: NAHID ALARCON Admission Status: ER Accout number: [id number] Admission Date: 01-21-2020 : 1960 Admission Diagnosis: Attending: SALUD, Current LOS: 2 Anticipated DC Date: Planned Disposition: Primary Insurance: [place]ID [place] Discharge Planning Comments: RECEIVED CALL BACK FROM [facility] AND THEY DECLINED DUE TO HIS MEDICAL ISSUES. COVID AND TOX SCREEN HAS BEEN ORDERED. Foundation Stage Teacher: Ann Marie Wells Appended by Ann Marie Wells on 01/23/2020 15:51 CDT: SPOKE WITH [facility] AND FAXED DOCUMENTS TO THEM. WAITING CALL BACK FOR PLACEMENT. DCP- Discharge Planning Updated by [id number]: Ann Marie Wells on 01/23/20 12:[address] Patient Name: NAHID ALARCON Admission Status: ER Accout number: [id number] Admission Date: 01-21-2020 : 1960 Admission Diagnosis: Attending: SALUD, Current LOS: 2 Anticipated DC Date: Planned Disposition: Primary Insurance: [place]ID [place] Discharge Planning Comments: REFERRAL FAXED TO [facility], SPOKE WITH LOUIS AT [facility] AND WAITING CALL BACK. Foundation Stage Teacher: Ann Marie Wells Last DP export: 01/23/20 2:51 p Patient Name: NAHID ALARCON Page 66791 at 1600 All edits/amendments must be made on the electronic document DICTATION DATE: 01/23/201558 RESEARCH NEUROPSYCHOLOGIST: JUNIOR 01/23/20 155 RPT#: [id number] DC DATE: STATUS: ADM IN [facility] [address] [place] [address] END OF REPORT
[2020-01-23 17:22] VITALS: BP 105/45
[2020-01-23 17:57] LABS: UDS - AMPHET NEGATIVE QUAL (NEGATIVE); UDS - BARB NEGATIVE QUAL (NEGATIVE); UDS - BENZO NEGATIVE QUAL (NEGATIVE); UDS - COCAINE NEGATIVE QUAL (NEGATIVE); UDS - OPIATE POSITIVE QUAL (NEGATIVE); UDS - PCP NEGATIVE QUAL (NEGATIVE); UDS - THC NEGATIVE QUAL (NEGATIVE)
--- NOTE | 2020-01-23 18:16 | NUR ---
CASE MANGEMENT CALLED FROM [facility] STATING DR. MALONE IS DENYING TRANSFER BASED ON UNCONTROLLED HTN AND REPORT OF SUICIDAL IDEATION WITHOUT A PLAN AND THEN NO SUICICIDAL IDEATION.
[2020-01-23 21:48] VITALS: BP 147/58
[2020-01-24 05:40] LABS: BASOPHILS 0.5 % (0-2); EOSINOPHILS 3.7 % (0-7); HEMATOCRIT 37.5 % (42.0-54.0); HEMOGLOBIN 12.1 g/dL (13.5-17.5); IMMATURE GRANULOCYTES 0.1 % (0-5); LYMPHOCYTES 14.5 % (15-50); MCH 30.9 pg (26.0-34.0); MCHC 32.3 g/dL (31.0-37.0); MCV 95.7 fL (80.0-100.0); MEAN PLATELET VOLUME 10.9 fL (7.4-10.4); NEUTROPHILS 73.2 % (40-80); PLATELET COUNT 206 10x3/uL (130-400); RBC 3.92 10x6/uL (4.20-6.10); RDW 13.4 % (11.5-14.5)
[2020-01-24 06:23] LABS: ALBUMIN 3.2 g/dL (3.4-5.0); ANION GAP 10.2 mmol/L (8-16); BILIRUBIN - TOTAL 0.44 mg/dL (0.2-1.3); CALCIUM 8.8 mg/dL (8.5-10.1); CARBON DIOXIDE 28.7 mmol/L (21.0-32.0); CREATININE - SERUM 1.5 mg/dL (0.6-1.3); POTASSIUM - SERUM 4.9 mmol/L (3.5-5.1); PROTEIN - SERUM 6.9 g/dL (6.4-8.2)
[2020-01-24 10:10] VITALS: BP 136/65
[2020-01-24 13:25] VITALS: BP 115/59
[2020-01-24 17:02] VITALS: BP 136/68
[2020-01-25 07:01] LABS: BASOPHILS 0.3 % (0-2); EOSINOPHILS 3.4 % (0-7); HEMATOCRIT 36.7 % (42.0-54.0); HEMOGLOBIN 11.8 g/dL (13.5-17.5); IMMATURE GRANULOCYTES 0.3 % (0-5); MCH 30.8 pg (26.0-34.0); MCHC 32.2 g/dL (31.0-37.0); MCV 95.8 fL (80.0-100.0); MONOCYTES 7.6 % (2-11); NEUTROPHILS 71.4 % (40-80); PLATELET COUNT 208 10x3/uL (130-400); RBC 3.83 10x6/uL (4.20-6.10); RDW 13.4 % (11.5-14.5); WBC 7.7 10x3/uL (4.8-10.8)
[2020-01-25 07:15] VITALS: BP 123/60
[2020-01-25 07:31] LABS: ALBUMIN 3.2 g/dL (3.4-5.0); ANION GAP 10.4 mmol/L (8-16); BILIRUBIN - TOTAL 0.32 mg/dL (0.2-1.3); CALCIUM 9.5 mg/dL (8.5-10.1); CARBON DIOXIDE 28.4 mmol/L (21.0-32.0); CREATININE - SERUM 1.5 mg/dL (0.6-1.3); MAGNESIUM - SERUM 2.3 mg/dL (1.8-2.4); POTASSIUM - SERUM 4.8 mmol/L (3.5-5.1); PROTEIN - SERUM 6.9 g/dL (6.4-8.2)
--- NOTE | 2020-01-25 09:00 | NUR ---
ALERT AND ORIETNED X4. STATED HE HAS NOT HAD ANY SUICIDAL IDEATIONS FOR THE LAST COUPLE OF DAYS. FALL PRECAUTIONS IN PLACE AND DENIES ANY PAIN OR DISCOMFORT AT THIS TIME. DRESSING INTACT TO LEFT FOOT. ENCOURAGED TO USE CALL LIGHT FOR ASSSIT
--- NOTE | 2020-01-25 11:53 | MORECARE ---
CASE MANAGEMENT DISCHARGE SUMMARY PATIENT: NAHID ALARCON UNIT: [id number] ADM DATE: 01/21/20 AGE: 59 : 64 SEX: M ROOM/BED: D.2229 AUTHOR: KEELY HITCHCOCK PHYSICIAN: REFERRING PHYSICIAN: RAÚL BRANNON MD DATE OF SERVICE: 01/25/20 Discharge Plan Patient Name: NAHID ALARCON Facility: [facility]:[place] : 1960 Planned Disposition: Anticipated Discharge Date: Discharge Date: Expected LOS: Initial Reviewer: [id number] Initial Review Date: 01/21/2020 Generated: 01/25/20 12:53 pm Comments DCP- Discharge Planning Updated by [email or web address]: Ann Marie Wells on 01/23/20 2:[address] Patient Name: NAHID ALARCON Admission Status: ER Accout number: [id number] Admission Date: 01-21-2020 : 1960 Admission Diagnosis: Attending: SALUD, Current LOS: 2 Anticipated DC Date: Planned Disposition: Primary Insurance: [place]ID [place] Discharge Planning Comments: RECEIVED CALL BACK FROM [facility] AND THEY DECLINED DUE TO HIS MEDICAL ISSUES. COVID AND TOX SCREEN HAS BEEN ORDERED. Intensive Care Unit Registered Nurse: Ann Marie Wells Appended by Ann Marie Wells on 01/23/2020 15:51 CDT: SPOKE WITH [facility] AND FAXED DOCUMENTS TO THEM. WAITING CALL BACK FOR PLACEMENT. DCP- Discharge Planning Updated by [email or web address]: Ann Marie Wells on 01/23/20 12:[address] Patient Name: NAHID ALARCON Admission Status: ER Accout number: [id number] Admission Date: 01-21-2020 : 1960 Admission Diagnosis: Attending: SALUD, Current LOS: 2 Anticipated DC Date: Planned Disposition: Primary Insurance: [place]ID [place] Discharge Planning Comments: REFERRAL FAXED TO [facility], SPOKE WITH LOUIS AT [facility] AND WAITING CALL BACK. Intensive Care Unit Registered Nurse: Ann Marie Wells External Providers External Provider: OTHER-OTHER Next Contact Date: Service Request Date: Service Type: Resolution: Reviewer: Comments: Last DP export: 01/23/20 3:00 p Patient Name: NAHID ALARCON Page 07579 at 1153 All edits/amendments must be made on the electronic document DICTATION DATE: 01/25/20 115 TRAINS DISPATCHER SUPERVISOR: JUNIOR 01/25/20 115 RPT#: [id number] DC DATE: STATUS: ADM IN [facility] [address] [facility] [place] [address] END OF REPORT
[2020-01-25 12:04] VITALS: BP 128/53
--- NOTE | 2020-01-25 14:15 | MORECARE ---
CASE MANAGEMENT DISCHARGE SUMMARY PATIENT: NAHID ALARCON UNIT: [id number] ADM DATE: 01/21/20 AGE: 59 : 64 SEX: M ROOM/BED: D.2229 AUTHOR: KEELY HITCHCOCK PHYSICIAN: REFERRING PHYSICIAN: RAÚL BRANNON MD DATE OF SERVICE: 01/25/20 Discharge Plan Patient Name: NAHID ALARCON Facility: [facility]:[place] : 1960 Planned Disposition: Anticipated Discharge Date: Discharge Date: Expected LOS: Initial Reviewer: [email or web address] Initial Review Date: 01/21/2020 Generated: 01/25/20 3:15 pm Comments DCP- Discharge Planning Updated by [email or web address]: Karlene Arriaza on 01/25/20 1:[address] CM CALLED [facility] , [facility], [facility]. ALL STATE THEY HAVE NO BEDE AVAILIBILITY, AND ARE UNSURE OF THE NEXT BED. [facility] AND [facility] STATES THEY ARE ON DIVERT AND CAN NOT ACCEPT ANY PSYCH TRANSFERS TO THE HOSPITAL. ABBY CALLED [facility] AND SPOKE TO WENDY AT [phone]. FAXED CLINCAL REFERRAL TO [phone]. WENDY ASKED THE DR COULD CALL DR AGUILAR AT [phone] FOR A DOC TO DOC. ABBY PROVIDED INFORMATION TO DR GORDON. CM WILL CONTINUE TO ASSIST IN DC PLANNING. KARLENE ARRIAZA DCP- Discharge Planning Updated by [id number]: Ann Marie Wells on 01/23/20 2:[address] Patient Name: NAHID ALARCON Admission Status: ER Accout number: [id number] Admission Date: 01-21-2020 : 1960 Admission Diagnosis: Attending: SALUD, Current LOS: 2 Anticipated DC Date: Planned Disposition: Primary Insurance: MED[place]ID [place] Discharge Planning Comments: RECEIVED CALL BACK FROM [facility] AND THEY DECLINED DUE TO HIS MEDICAL ISSUES. COVID AND TOX SCREEN HAS BEEN ORDERED. Returned Goods Receiving Clerk: Ann Marie Wells Appended by Ann Marie Wells on 01/23/2020 15:51 CDT: SPOKE WITH [facility] AND FAXED DOCUMENTS TO THEM. WAITING CALL BACK FOR PLACEMENT. DCP- Discharge Planning Updated by [id number]: Ann Marie Wells on 01/23/20 12:[address] Patient Name: NAHID ALARCON Admission Status: ER Accout number: [id number] Admission Date: 01-21-2020 : 1960 Admission Diagnosis: Attending: SALUD, Current LOS: 2 Anticipated DC Date: Planned Disposition: Primary Insurance: MEDICAID [place] Discharge Planning Comments: REFERRAL FAXED TO [facility], SPOKE WITH LOUIS AT [facility] AND WAITING CALL BACK. Returned Goods Receiving Clerk: Ann Marie Wells Last DP export: 01/25/20 10:53 a Patient Name: NAHID ALARCON Page [phone] at 1415 All edits/amendments must be made on the electronic document DICTATION DATE: 01/25/201414 FORMAL WAITER/WAITRESS: JUNIOR 01/25/201414 RPT#: [id number] DC DATE: STATUS: ADM IN [place] [address] [place] [address] END OF REPORT
[2020-01-25 15:42] VITALS: BP 149/76
[2020-01-25 20:00] VITALS: BP 128/63
--- NOTE | 2020-01-25 20:00 | NUR ---
PATIENT REQUESTED TO USE BATHROOM, PATIENT INSISTED ON DOING BY HIMSELF, PATIENT TOLERATED WELL, ASSISTED PATIENT BACK TO BE WITH JUST STAND BY, WILL CONTINUE TO MONITOR PATIENT.
[2020-01-26] VITALS: BP 125/65
[2020-01-26 04:00] VITALS: BP 128/65
[2020-01-26 06:20] LABS: BASOPHILS 0.2 % (0-2); EOSINOPHILS 3.4 % (0-7); HEMATOCRIT 36.7 % (42.0-54.0); HEMOGLOBIN 11.7 g/dL (13.5-17.5); IMMATURE GRANULOCYTES 0.2 % (0-5); LYMPHOCYTES 16.5 % (15-50); MCH 30.5 pg (26.0-34.0); MCHC 31.9 g/dL (31.0-37.0); MCV 95.8 fL (80.0-100.0); MEAN PLATELET VOLUME 11.1 fL (7.4-10.4); MONOCYTES 10.4 % (2-11); NEUTROPHILS 69.3 % (40-80); PLATELET COUNT 204 10x3/uL (130-400); RBC 3.83 10x6/uL (4.20-6.10); RDW 13.4 % (11.5-14.5); WBC 8.2 10x3/uL (4.8-10.8)
[2020-01-26 06:57] LABS: ALBUMIN 3.2 g/dL (3.4-5.0); BILIRUBIN - TOTAL 0.3 mg/dL (0.2-1.3); CALCIUM 9.1 mg/dL (8.5-10.1); CARBON DIOXIDE 30.3 mmol/L (21.0-32.0); CREATININE - SERUM 1.5 mg/dL (0.6-1.3); MAGNESIUM - SERUM 2.2 mg/dL (1.8-2.4); POTASSIUM - SERUM 5.3 mmol/L (3.5-5.1); PROTEIN - SERUM 6.4 g/dL (6.4-8.2)
[2020-01-26 08:37] VITALS: BP 119/68
[2020-01-26 12:00] VITALS: BP 121/55
[2020-01-26 16:00] VITALS: BP 142/64
[2020-01-26 20:55] VITALS: BP 119/58
[2020-01-27 04:30] VITALS: BP 139/75
[2020-01-27 06:16] LABS: BASOPHILS 0.4 % (0-2); HEMATOCRIT 38.7 % (42.0-54.0); HEMOGLOBIN 12.6 g/dL (13.5-17.5); IMMATURE GRANULOCYTES 0.1 % (0-5); LYMPHOCYTES 20.7 % (15-50); MCHC 32.6 g/dL (31.0-37.0); MCV 95.3 fL (80.0-100.0); MEAN PLATELET VOLUME 11.4 fL (7.4-10.4); MONOCYTES 9.4 % (2-11); NEUTROPHILS 66.4 % (40-80); PLATELET COUNT 225 10x3/uL (130-400); RBC 4.06 10x6/uL (4.20-6.10); RDW 13.4 % (11.5-14.5); WBC 8.1 10x3/uL (4.8-10.8)
[2020-01-27 07:11] LABS: ALBUMIN 3.3 g/dL (3.4-5.0); ANION GAP 11.5 mmol/L (8-16); BILIRUBIN - TOTAL 0.37 mg/dL (0.2-1.3); CALCIUM 9.1 mg/dL (8.5-10.1); CARBON DIOXIDE 28.3 mmol/L (21.0-32.0); POTASSIUM - SERUM 4.8 mmol/L (3.5-5.1); PROTEIN - SERUM 6.7 g/dL (6.4-8.2)
[2020-01-27 07:16] LABS: CREATININE - SERUM 1.9 mg/dL (0.6-1.3)
[2020-01-27 08:09] VITALS: BP 143/76
--- NOTE | 2020-01-27 09:50 | PN ---
PATIENT:NAHID ALARCON MEDICAL RECORD: [id number] LOCATION:D.MS Head222 ADMISSION DATE: 01/21/20 PROGRESS NOTE DATE OF SERVICE: 01/26/2020 SUBJECTIVE: The patient's case was discussed with staff. He has no new complaint. OBJECTIVE: The patient has a depressed mood and says he is thinking about hurting himself. I have been asked to see him again because he was not suicidal. He tells me he does not want to kill himself, but he feels he has no choice because he is so unhappy and depressed. ASSESSMENT: Major depression. PLAN: The patient is in need of inpatient psychiatric care and I would recommend he be transferred there as soon as reasonably possible. TRANSINT:[id number] Voice Confirmation ID: [id number] DOCUMENT ID: [id number] MARINO ROBERTS MD at 0950 CC: [id number] DICTATION DATE: 01/26/20 1738 CLIENT SERVICE EXECUTIVE: 01/27/20 0031 ADM IN [place] [id number] [place] [id number]
[2020-01-27 12:54] VITALS: BP 147/78
--- NOTE | 2020-01-27 14:41 | MORECARE ---
CASE MANAGEMENT DISCHARGE SUMMARY PATIENT: NAHID ALARCON UNIT: [id number] ADM DATE: 01/21/20 AGE: 59 : 64 SEX: M ROOM/BED: D.2229 AUTHOR: KEELY HITCHCOCK PHYSICIAN: REFERRING PHYSICIAN: RAÚL BRANNON MD DATE OF SERVICE: 01/27/20 Discharge Plan Patient Name: NAHID ALARCON Facility: [facility]:[place] : 1960 Planned Disposition: Anticipated Discharge Date: Discharge Date: Expected LOS: Initial Reviewer: [id number] Initial Review Date: 01/21/2020 Generated: 01/27/20 3:40 pm Comments DCP- Discharge Planning Updated by [email or web address]: Monica Garcia on 01/27/20 1:[address] I HAVE CALLED [facility] [facility] I SPOKE WITH MUMTAZ THE CHARGE NURSE IN THE ER ABOUT THE REFERRAL, SHE STATED TO SEND EVERYTHING AGAIN AND SHE WOULD HAVE HER DR LOOK AT IT AND GET BACK WITH ME. PATIENT IS STABLE TO GO THERE IF ACCEPTED DCP- Discharge Planning Updated by [email or web address]: Kam Arriaza on 01/25/20 1:[address] CM CALLED [facility] [place], [facility], [place]. ALL STATE THEY HAVE NO BEDE AVAILIBILITY, AND ARE UNSURE OF THE NEXT BED. [facility] AND [facility] STATES THEY ARE ON DIVERT AND CAN NOT ACCEPT ANY PSYCH TRANSFERS TO THE HOSPITAL. ABBY CALLED [facility] [place] AND SPOKE TO WENDY AT [phone]. FAXED CLINCAL REFERRAL TO [phone]. WENDY ASKED THE DR COULD CALL DR AGUILAR AT [phone] FOR A DOC TO DOC. ABBY PROVIDED INFORMATION TO DR GORDON. CM WILL CONTINUE TO ASSIST IN DC PLANNING. KAM ARRIAZA DCP- Discharge Planning Updated by [email or web address]: Ann Marie Wells on 01/23/20 2:[address] Patient Name: NAHID ALARCON Admission Status: ER Accout number: [id number] Admission Date: 01-21-2020 : 1960 Admission Diagnosis: Attending: SALUD, Current LOS: 2 Anticipated DC Date: Planned Disposition: Primary Insurance: MEDICAID [place] Discharge Planning Comments: RECEIVED CALL BACK FROM [facility] AND THEY DECLINED DUE TO HIS MEDICAL ISSUES. COVID AND TOX SCREEN HAS BEEN ORDERED. Manifold Builder: Ann Marie Wells Appended by Ann Marie Wells on 01/23/2020 15:51 CDT: SPOKE WITH [facility] AND FAXED DOCUMENTS TO THEM. WAITING CALL BACK FOR PLACEMENT. DCP- Discharge Planning Updated by [id number]: Ann Marie Wells on 01/23/20 12:[address] Patient Name: NAHID ALARCON Admission Status: ER Accout number: [id number] Admission Date: 01-21-2020 : 1960 Admission Diagnosis: Attending: SALUD, Current LOS: 2 Anticipated DC Date: Planned Disposition: Primary Insurance: MEDICAID [place] Discharge Planning Comments: REFERRAL FAXED TO [facility], SPOKE WITH LOUIS AT [facility] AND WAITING CALL BACK. Manifold Builder: Ann Marie Wells Last DP export: 01/25/20 1:15 p Patient Name: NAHID ALARCON Page [phone] at 1441 All edits/amendments must be made on the electronic document DICTATION DATE: 01/27/20 1440 INDUSTRIAL PROPERTY APPRAISER: JUNIOR 01/27/20 1440 RPT#: [id number] DC DATE: STATUS: ADM IN [facility] [address] [place] [address] END OF REPORT
[2020-01-27 17:24] VITALS: BP 129/62
[2020-01-27 20:00] VITALS: BP 132/68
[2020-01-28] VITALS: BP 114/46
[2020-01-28 04:00] VITALS: BP 110/54
[2020-01-28 07:12] LABS: BASOPHILS 0.3 % (0-2); EOSINOPHILS 3.1 % (0-7); HEMATOCRIT 40.6 % (42.0-54.0); HEMOGLOBIN 13.1 g/dL (13.5-17.5); IMMATURE GRANULOCYTES 0.2 % (0-5); LYMPHOCYTES 15.9 % (15-50); MCH 30.6 pg (26.0-34.0); MCHC 32.3 g/dL (31.0-37.0); MCV 94.9 fL (80.0-100.0); MEAN PLATELET VOLUME 11.2 fL (7.4-10.4); MONOCYTES 11.7 % (2-11); NEUTROPHILS 68.8 % (40-80); PLATELET COUNT 233 10x3/uL (130-400); RBC 4.28 10x6/uL (4.20-6.10); RDW 13.3 % (11.5-14.5); WBC 8.8 10x3/uL (4.8-10.8)
[2020-01-28 07:32] LABS: ALBUMIN 3.4 g/dL (3.4-5.0); ANION GAP 11.1 mmol/L (8-16); BILIRUBIN - TOTAL 0.44 mg/dL (0.2-1.3); CALCIUM 9.6 mg/dL (8.5-10.1); CARBON DIOXIDE 28.9 mmol/L (21.0-32.0); CREATININE - SERUM 1.8 mg/dL (0.6-1.3); PROTEIN - SERUM 7.4 g/dL (6.4-8.2)
[2020-01-28 08:50] VITALS: BP 132/70
--- NOTE | 2020-01-28 09:31 | NUR ---
Nutrition follow-up: Diet: ADA consistent CHO PO intake 100% of meals Labs reviewed; Glucose under very good control Wt: 230# RDN following.
[2020-01-28 13:31] VITALS: BP 118/55
--- NOTE | 2020-01-28 14:35 | PN ---
PATIENT:NAHID ALARCON MEDICAL RECORD: [id number] LOCATION:D.MS Head222 ADMISSION DATE: 01/21/20 PROGRESS NOTE DATE OF SERVICE: 01/27/2020 SUBJECTIVE: The patient's case was discussed with staff. He has no new complaint. OBJECTIVE: The patient has a depressed mood. He is still having suicidal thoughts. ASSESSMENT: Major depression. PLAN: The patient is in need of inpatient psychiatric care and should be transferred to that level of care as soon as it is practical to do so. In the interim, he should stay 1:1 with a sitter. TRANSINT:[id number] Voice Confirmation ID: [id number] DOCUMENT ID: [id number] MARINO ROBERTS MD at 1435 CC: [id number] DICTATION DATE: 01/27/201727 INDUSTRIAL ROOF PLUMBER: 01/28/20 0110 ADM IN [facility] [address] [place] [id number]
[2020-01-28 16:37] VITALS: BP 147/74
[2020-01-28 20:00] VITALS: BP 105/54
[2020-01-29] VITALS: BP 115/53
[2020-01-29 04:00] VITALS: BP 121/61
[2020-01-29 04:53] LABS: BASOPHILS 0.3 % (0-2); EOSINOPHILS 2.4 % (0-7); HEMATOCRIT 37.4 % (42.0-54.0); HEMOGLOBIN 12.3 g/dL (13.5-17.5); IMMATURE GRANULOCYTES 0.2 % (0-5); LYMPHOCYTES 14.8 % (15-50); MCHC 32.9 g/dL (31.0-37.0); MCV 94.2 fL (80.0-100.0); MONOCYTES 10.4 % (2-11); NEUTROPHILS 71.9 % (40-80); PLATELET COUNT 221 10x3/uL (130-400); RBC 3.97 10x6/uL (4.20-6.10); RDW 13.2 % (11.5-14.5); WBC 10.3 10x3/uL (4.8-10.8)
[2020-01-29 05:26] LABS: ALBUMIN 3.3 g/dL (3.4-5.0); ANION GAP 9.2 mmol/L (8-16); BILIRUBIN - TOTAL 0.26 mg/dL (0.2-1.3); CALCIUM 9.4 mg/dL (8.5-10.1); CARBON DIOXIDE 26.7 mmol/L (21.0-32.0); CREATININE - SERUM 1.9 mg/dL (0.6-1.3); POTASSIUM - SERUM 4.9 mmol/L (3.5-5.1); PROTEIN - SERUM 7.5 g/dL (6.4-8.2)
--- NOTE | 2020-01-29 06:54 | NUR ---
I have reviewed this patient and I concur with the Shift Assessment completed by the Licensed Practical Nurse today this shift.
[2020-01-29 08:00] VITALS: BP 133/68
[2020-01-29 12:00] VITALS: BP 121/43
--- NOTE | 2020-01-29 12:16 | PN ---
PATIENT:NAHID ALARCON MEDICAL RECORD: [id number] LOCATION:D.MS Head222 ADMISSION DATE: 01/21/20 PROGRESS NOTE DATE OF SERVICE: 01/28/2020 SUBJECTIVE: The patient's case was discussed with staff. He has no new complaint. OBJECTIVE: The patient denies any psychotic symptoms or thoughts of harming others. He still says he wants to . He is endorsing numerous neurovegetative depressive symptoms. ASSESSMENT: Major depression. PLAN: The patient should be kept 1:1 with a sitter until transferred to acute inpatient psychiatric care. Dr. Miller from [facility] is considering him and would like to speak to me. I called her at [phone] that is the switchboard at [facility]. They transferred me to the psychiatric unit and she was not available to speak to me. He has my cell number and will call hopefully at some point. TRANSINT:[id number] Voice Confirmation ID: [id number] DOCUMENT ID: [id number] MARINO ROBERTS MD at 1216 CC: [id number] DICTATION DATE: 01/28/20 170 CONCRETE WALL GRINDER OPERATOR: 01/29/20 0121 ADM IN [facility] [address] [place] [address]
[2020-01-29 15:26] VITALS: BP 110/49
--- NOTE | 2020-01-29 17:26 | MORECARE ---
CASE MANAGEMENT DISCHARGE SUMMARY PATIENT: NAHID ALARCON UNIT: [id number] ADM DATE: 01/21/20 AGE: 59 : 64 SEX: M ROOM/BED: D.2229 AUTHOR: KEELY HITCHCOCK PHYSICIAN: REFERRING PHYSICIAN: RAÚL BRANNON MD DATE OF SERVICE: 01/29/20 Discharge Plan Patient Name: NAHID ALARCON Facility: [facility]:[place] : 1960 Planned Disposition: Anticipated Discharge Date: Discharge Date: Expected LOS: Initial Reviewer: [id number] Initial Review Date: 01/21/2020 Generated: 01/29/20 6:26 pm DCP- Discharge Planning Updated by [id number]: Monica Garcia on 01/27/20 1:[address] I HAVE CALLED [facility] I SPOKE WITH MUMTAZ THE CHARGE NURSE IN THE ER ABOUT THE REFERRAL, SHE STATED TO SEND EVERYTHING AGAIN AND SHE WOULD HAVE HER DR LOOK AT IT AND GET BACK WITH ME. PATIENT IS STABLE TO GO THERE IF ACCEPTED DCP- Discharge Planning Updated by [email or web address]: Kam Arriaza on 01/25/20 1:[address] CM CALLED [facility] [place], [place], [place]. ALL STATE THEY HAVE NO BEDE AVAILIBILITY, AND ARE UNSURE OF THE NEXT BED. [facility] THEY ARE ON DIVERT AND CAN NOT ACCEPT ANY PSYCH TRANSFERS TO THE HOSPITAL. ABBY CALLED [facility] AND SPOKE TO WENDY AT [phone]. FAXED CLINCAL REFERRAL TO [phone]. WENDY ASKED THE DR COULD CALL DR AGUILAR AT [phone] FOR A DOC TO DOC. ABBY PROVIDED INFORMATION TO DR GORDON. CM WILL CONTINUE TO ASSIST IN DC PLANNING. KAM ARRIAZA DCP- Discharge Planning Updated by [id number]: Ann Marie Wells on 01/23/20 2:[address] Patient Name: NAHID ALARCON Admission Status: ER Accout number: [id number] Admission Date: 01-21-2020 : 1960 Admission Diagnosis: Attending: SALUD, Current LOS: 2 Anticipated DC Date: Planned Disposition: Primary Insurance: MEDICAID [place] Discharge Planning Comments: RECEIVED CALL BACK FROM [facility] AND THEY DECLINED DUE TO HIS MEDICAL ISSUES. COVID AND TOX SCREEN HAS BEEN ORDERED. Home Health Specialist: Ann Marie Wells Appended by Ann Marie Wells on 01/23/2020 15:51 CDT: SPOKE WITH [facility] AND FAXED DOCUMENTS TO THEM. WAITING CALL BACK FOR PLACEMENT. DCP- Discharge Planning Updated by [id number]: Ann Marie Wells on 01/23/20 12:[address] Patient Name: NAHID ALARCON Admission Status: ER Accout number: [id number] Admission Date: 01-21-2020 : 1960 Admission Diagnosis: Attending: SALUD, Current LOS: 2 Anticipated DC Date: Planned Disposition: Primary Insurance: MEDICAID [place] Discharge Planning Comments: REFERRAL FAXED TO [facility], SPOKE WITH LOUIS AT [facility] AND WAITING CALL BACK. Home Health Specialist: Ann Marie Wells External Providers External Provider: OTHER-OTHER Next Contact Date: Service Request Date: Service Type: Resolution: Reviewer: Comments: Last DP export: 01/27/20 1:41 p Patient Name: NAHID ALARCON Page 30859 at 1726 All edits/amendments must be made on the electronic document DICTATION DATE: 01/29/201725 WEIR FISHERMAN: JUNIOR 01/29/201725 RPT#: [id number] DC DATE: STATUS: ADM IN [facility] [address] [place] [address] END OF REPORT
--- NOTE | 2020-01-29 17:28 | NUR ---
I have reviewed this patient and I concur with the Shift Assessment completed by the Licensed Practical Nurse today this shift.
[2020-01-29 20:00] VITALS: BP 136/70
[2020-01-30] VITALS: BP 101/55
[2020-01-30 04:00] VITALS: BP 128/58
--- NOTE | 2020-01-30 04:10 | NUR ---
ASSESSED AT THE BEGINNING OF THE SHIFT. PT IS ALERT AND ABLE TO VERBALIZE NEEDS. HE CAN GET UP TO BATHROOM WITH HIS CANE AND PARTIAL ASSIST. HE TOOK ALL HIS MEDS WITHOUT PROBLEM AND WE REDRESSED HIS LEFT FOOT WOUND. HE HAD ONE INCONT. EPISODE AND WE CHANGED HIS LINENS AND HIM.
[2020-01-30 06:58] LABS: BASOPHILS 0.4 % (0-2); EOSINOPHILS 3.8 % (0-7); HEMOGLOBIN 12.8 g/dL (13.5-17.5); IMMATURE GRANULOCYTES 0.2 % (0-5); LYMPHOCYTES 18.9 % (15-50); MCH 30.5 pg (26.0-34.0); MCV 95.2 fL (80.0-100.0); MEAN PLATELET VOLUME 11.2 fL (7.4-10.4); MONOCYTES 8.3 % (2-11); NEUTROPHILS 68.4 % (40-80); PLATELET COUNT 228 10x3/uL (130-400); RDW 13.3 % (11.5-14.5); WBC 9.2 10x3/uL (4.8-10.8)
[2020-01-30 07:11] LABS: ALBUMIN 3.4 g/dL (3.4-5.0); ANION GAP 11.4 mmol/L (8-16); BILIRUBIN - TOTAL 0.4 mg/dL (0.2-1.3); CALCIUM 9.5 mg/dL (8.5-10.1); CARBON DIOXIDE 28.6 mmol/L (21.0-32.0); PROTEIN - SERUM 7.5 g/dL (6.4-8.2)
[2020-01-30 08:09] VITALS: BP 132/72
--- NOTE | 2020-01-30 09:09 | PN ---
PATIENT:NAHID ALARCON MEDICAL RECORD: [id number] LOCATION:D.MS Head222 ADMISSION DATE: 01/21/20 PROGRESS NOTE DATE OF SERVICE: 01/29/2020 SUBJECTIVE: The patient's case was discussed with staff. He has no new complaint. OBJECTIVE: The patient has a depressed mood and still has suicidal thoughts. ASSESSMENT: Major depression. PLAN: The patient is in need of inpatient psychiatric care. I called Dr. Miller at [facility] to see about transferring him yesterday. As in my note yesterday, she was not available and I gave them my cell number to call me, which she did not call until about 3:30 today. She apparently did not know anything about the case. I explained it in detail to her and she told me that she felt it was appropriate for transfer bed. She was concerned about placement after they treat him. She had some questions about his financial resources that I could not answer, so she was kind enough to give me her cell number which I will not put into the medical record, but which I did give to Ann Marie in case management. Ann Marie is going to find out information about his social security check and other resources and call Dr. Miller to hopefully put the final steps in place to get him transferred. I do have her cell number if that is needed, but again I do not want to put it in the medical record. TRANSINT:[id number] Voice Confirmation ID: [id number] DOCUMENT ID: [id number] MARINO ROBERTS MD at 0909 CC: [id number] DICTATION DATE: 01/29/201727 BAIL AGENT: 01/29/20 2321 ADM IN [facility] [address] [place] [address]
[2020-01-30 12:12] VITALS: BP 119/54
--- NOTE | 2020-01-30 12:28 | NUR ---
LYING IN BED,WITHOUT DISTRESS.CALL LIGHT IN REACH
[2020-01-30 15:37] VITALS: BP 98/50
--- NOTE | 2020-01-30 15:38 | MORECARE ---
CASE MANAGEMENT DISCHARGE SUMMARY PATIENT: NAHID ALARCON UNIT: [id number] ADM DATE: 01/21/20 AGE: 59 : 64 SEX: M ROOM/BED: D.2229 AUTHOR: KEELY HITCHCOCK PHYSICIAN: REFERRING PHYSICIAN: RAÚL BRANNON MD DATE OF SERVICE: 01/30/20 Discharge Plan Patient Name: NAHID ALARCON Facility: [facility]:[place] : 1960 Planned Disposition: Anticipated Discharge Date: Discharge Date: Expected LOS: Initial Reviewer: [id number] Initial Review Date: 01/21/2020 Generated: 01/30/20 4:38 pm DCP- Discharge Planning Updated by [id number]: Monica Garcia on 01/27/20 1:[address] I HAVE CALLED [facility] I SPOKE WITH MUMTAZ THE CHARGE NURSE IN THE ER ABOUT THE REFERRAL, SHE STATED TO SEND EVERYTHING AGAIN AND SHE WOULD HAVE HER DR LOOK AT IT AND GET BACK WITH ME. PATIENT IS STABLE TO GO THERE IF ACCEPTED DCP- Discharge Planning Updated by [email or web address]: Kam Arriaza on 01/25/20 1:[address] CM CALLED [facility] [place], [place]. ALL STATE THEY HAVE NO BEDE AVAILIBILITY, AND ARE UNSURE OF THE NEXT BED. [facility] AND [facility] STATES THEY ARE ON DIVERT AND CAN NOT ACCEPT ANY PSYCH TRANSFERS TO THE HOSPITAL. ABBY CALLED [facility] AND SPOKE TO WENDY AT [phone]. FAXED CLINCAL REFERRAL TO [phone]. WENDY ASKED THE DR COULD CALL DR AGUILAR AT [phone] FOR A DOC TO DOC. ABBY PROVIDED INFORMATION TO DR GORDON. CM WILL CONTINUE TO ASSIST IN DC PLANNING. KAM ARRIAZA DCP- Discharge Planning Updated by [email or web address]: Ann Marie Wells on 01/23/20 2:[address] Patient Name: NAHID ALARCON Admission Status: ER Accout number: [id number] Admission Date: 01-21-2020 : 1960 Admission Diagnosis: Attending: SALUD, Current LOS: 2 Anticipated DC Date: Planned Disposition: Primary Insurance: MEDICAID [place] Discharge Planning Comments: RECEIVED CALL BACK FROM [facility] AND THEY DECLINED DUE TO HIS MEDICAL ISSUES. COVID AND TOX SCREEN HAS BEEN ORDERED. Tent Finisher: Ann Marie Wells Appended by Ann Marie Wells on 01/23/2020 15:51 CDT: SPOKE WITH [facility] AND FAXED DOCUMENTS TO THEM. WAITING CALL BACK FOR PLACEMENT. DCP- Discharge Planning Updated by [email or web address]: Ann Marie Wells on 01/23/20 12:[address] Patient Name: NAHID ALARCON Admission Status: ER Accout number: [id number] Admission Date: 01-21-2020 : 1960 Admission Diagnosis: Attending: SALUD, Current LOS: 2 Anticipated DC Date: Planned Disposition: Primary Insurance: MEDICAID [place] Discharge Planning Comments: REFERRAL FAXED TO [facility], SPOKE WITH LOUIS AT [facility] AND WAITING CALL BACK. Tent Finisher: Ann Marie Wells External Providers External Provider: OTHER-OTHER Next Contact Date: Service Request Date: Service Type: Resolution: Reviewer: Comments: Last DP export: 01/29/20 4:27 p Patient Name: NAHID ALARCON Page 92187 at 1538 All edits/amendments must be made on the electronic document DICTATION DATE: 01/30/20 1538 BRUSH FILLER HAND: JUNIOR 01/30/20 1538 RPT#: [id number] DC DATE: STATUS: ADM IN [facility] [address] [place] [address] END OF REPORT
--- NOTE | 2020-01-30 15:53 | MORECARE ---
CASE MANAGEMENT DISCHARGE SUMMARY PATIENT: NAHID ALARCON UNIT: [id number] ADM DATE: 01/21/20 AGE: 59 : 64 SEX: M ROOM/BED: D.2229 AUTHOR: CORETTADOC PHYSICIAN: REFERRING PHYSICIAN: RAÚL BRANNON MD DATE OF SERVICE: 01/30/20 Discharge Plan Patient Name: NAHID ALARCON Facility: [facility]:[place] : 1960 Planned Disposition: Anticipated Discharge Date: Discharge Date: Expected LOS: Initial Reviewer: [email or web address] Initial Review Date: 01/21/2020 Generated: 01/30/20 4:52 pm Comments DCP- Discharge Planning Updated by [email or web address]: Ann Marie Wells on 01/30/20 2:[address] Patient Name: NAHID ALARCON Admission Status: ER Accout number: [id number] Admission Date: 01-21-2020 : 1960 Admission Diagnosis:ATHSCL HEART DISEASE OF [place] COR ART W UNSTABLE ANG P Attending: SALUD, Current LOS: 9 Anticipated DC Date: Planned Disposition: Primary Insurance: [place]ICAID [place] Discharge Planning Comments: FAXED UPDATED CLINICALS TO DR. AGUILAR AT [facility] AT [phone]. WAITING CALL BACK FROM [facility] IF THEY WILL ACCEPT. Brush Painter: Ann Marie Wells DCP- Discharge Planning Updated by [email or web address]: Monica Garcia on 01/27/20 1:[address] I HAVE CALLED [facility] I SPOKE WITH MUMTAZ THE CHARGE NURSE IN THE ER ABOUT THE REFERRAL, SHE STATED TO SEND EVERYTHING AGAIN AND SHE WOULD HAVE HER DR LOOK AT IT AND GET BACK WITH ME. PATIENT IS STABLE TO GO THERE IF ACCEPTED DCP- Discharge Planning Updated by [email or web address]: Kam Arriaza on 01/25/20 1:[address] CM CALLED [facility] IN , [place], [place]. ALL STATE THEY HAVE NO BEDE AVAILIBILITY, AND ARE UNSURE OF THE NEXT BED. [facility] STATES THEY ARE ON DIVERT AND CAN NOT ACCEPT ANY PSYCH TRANSFERS TO THE HOSPITAL. CM CALLED [facility] AND SPOKE TO WENDY AT [phone]. FAXED CLINCAL REFERRAL TO [phone]. WENDY ASKED THE COULD CALL DR AGUILAR AT [phone] FOR A DOC TO DOC. ABBY PROVIDED INFORMATION TO DR GORDON. CM WILL CONTINUE TO ASSIST IN DC PLANNING. KAM ARRIAZA DCP- Discharge Planning Updated by [email or web address]: Ann Marie Wells on 01/23/20 2:[address] Patient Name: NAHID ALARCON Admission Status: ER Accout number: [id number] Admission Date: 01-21-2020 : 1960 Admission Diagnosis: Attending: SALUD, Current LOS: 2 Anticipated DC Date: Planned Disposition: Primary Insurance: [place]ID [place] Discharge Planning Comments: RECEIVED CALL BACK FROM [facility] AND THEY DECLINED DUE TO HIS MEDICAL ISSUES. COVID AND TOX SCREEN HAS BEEN ORDERED. Brush Painter: Ann Marie Wells Appended by Ann Marie Wells on 01/23/2020 15:51 CDT: SPOKE WITH [facility] AND FAXED DOCUMENTS TO THEM. WAITING CALL BACK FOR PLACEMENT. DCP- Discharge Planning Updated by [email or web address]: Ann Marie Wells on 01/23/20 12:[address] Patient Name: NAHID ALARCON Admission Status: ER Accout number: [id number] Admission Date: 01-21-2020 : 1960 Admission Diagnosis: Attending: SALUD, Current LOS: 2 Anticipated DC Date: Planned Disposition: Primary Insurance: MEDICAID [place] Discharge Planning Comments: REFERRAL FAXED TO [facility], SPOKE WITH LOUIS AT [facility] AND WAITING CALL BACK. Brush Painter: Ann Marie Wells Last DP export: 01/30/20 2:38 p Patient Name: NAHID ALARCON Page 21473 at 1553 All edits/amendments must be made on the electronic document DICTATION DATE: 01/30/20 1553 SAFETY SEALER: JUNIOR 01/30/20 1553 RPT#: [id number] DC DATE: STATUS: ADM IN [facility] [address] [place] [address] END OF REPORT
[2020-01-31 04:00] VITALS: BP 125/70
--- NOTE | 2020-01-31 04:57 | NUR ---
ASSESSED AT THE BEGINNING OF THE SHIFT. PT IS ALERT AND ORIENTED, ABLE TO VERBALIZE NEEDS. HE IS STILL WEARING HIS TELEMETRY AND RUNNING WITH SB AND BBB. WHEN HE GETTS UP TO GO TO THE BATHROOM HE USES A CANE AND WE DO STANDBY ASSIST. HE IS VERY SHAKEY AT GETTING TO THE BATHROOM AND NEEDS ASSIST. HE ASKED FOR PAIN MEDS FOR HIS FOOT ONCE AND RECEIVED TYLENOL WHICH HELPED HIM GO BACK TO SLEEP. AT THIS TIME HE IS ASLEEP.
[2020-01-31 07:15] LABS: BASOPHILS 0.2 % (0-2); EOSINOPHILS 3.6 % (0-7); HEMATOCRIT 41.1 % (42.0-54.0); HEMOGLOBIN 13.4 g/dL (13.5-17.5); IMMATURE GRANULOCYTES 0.2 % (0-5); LYMPHOCYTES 14.5 % (15-50); MCH 31.4 pg (26.0-34.0); MCHC 32.6 g/dL (31.0-37.0); MCV 96.3 fL (80.0-100.0); MEAN PLATELET VOLUME 10.6 fL (7.4-10.4); NEUTROPHILS 71.5 % (40-80); PLATELET COUNT 214 10x3/uL (130-400); RBC 4.27 10x6/uL (4.20-6.10); RDW 13.5 % (11.5-14.5); WBC 9.1 10x3/uL (4.8-10.8)
[2020-01-31 09:12] LABS: ALBUMIN 3.8 g/dL (3.4-5.0); ANION GAP 14.9 mmol/L (8-16); BILIRUBIN - TOTAL 0.27 mg/dL (0.2-1.3); CALCIUM 9.7 mg/dL (8.5-10.1); CARBON DIOXIDE 24.5 mmol/L (21.0-32.0); CREATININE - SERUM 2.2 mg/dL (0.6-1.3); POTASSIUM - SERUM 5.4 mmol/L (3.5-5.1); PROTEIN - SERUM 8.3 g/dL (6.4-8.2)
[2020-01-31 09:42] VITALS: BP 101/52
--- NOTE | 2020-01-31 11:55 | NUR ---
IV TUBING NEW.
[2020-01-31 12:12] VITALS: BP 99/37
[2020-01-31 17:08] VITALS: BP 111/60
--- NOTE | 2020-01-31 19:00 | NUR ---
PATIENT ALERT AND ORIENTED. ASSESSMENT PERFORMED AND COMPLETED. ANSWERED PATIENT QUESTIONS. FALL PRECAUTIONS IN PLACE. DENIES FURTHER NEEDS AT THIS TIME. CALL LIGHT CLOSE. 1:[address] PER ORDER. SI PRECAUTIONS IN PLACE. CPOC.
[2020-01-31 20:00] VITALS: BP 110/56
--- NOTE | 2020-01-31 22:25 | NUR ---
PATIENT REQUESTING PRN PAIN MEDICINE FOR PAIN COMPLAINTS IN THE TAIL BONE RATING "9/10". ADMINISTERED TYLENOL PRN. PATIENT TOLERATED WELL. CPOC.
[2020-02-01] VITALS: BP 130/62
--- NOTE | 2020-02-01 01:59 | NUR ---
ASSISTED PATIENT TO BATHROOM AND BACK TO BED SAFELY. FALL PRECAUTIONS IN PLACE. PATIENT DENIES FURTHER NEEDS AT THIS TIME. CPOC.
[2020-02-01 04:00] VITALS: BP 119/66
[2020-02-01 07:08] LABS: BASOPHILS 0.3 % (0-2); EOSINOPHILS 3.8 % (0-7); HEMATOCRIT 35.7 % (42.0-54.0); HEMOGLOBIN 11.4 g/dL (13.5-17.5); IMMATURE GRANULOCYTES 0.1 % (0-5); LYMPHOCYTES 17.8 % (15-50); MCH 30.6 pg (26.0-34.0); MCHC 31.9 g/dL (31.0-37.0); MEAN PLATELET VOLUME 11.4 fL (7.4-10.4); MONOCYTES 9.5 % (2-11); NEUTROPHILS 68.5 % (40-80); PLATELET COUNT 208 10x3/uL (130-400); RBC 3.72 10x6/uL (4.20-6.10); RDW 13.4 % (11.5-14.5); WBC 7.9 10x3/uL (4.8-10.8)
[2020-02-01 07:36] LABS: BILIRUBIN - TOTAL 0.35 mg/dL (0.2-1.3); CALCIUM 8.5 mg/dL (8.5-10.1); CARBON DIOXIDE 26.6 mmol/L (21.0-32.0); PROTEIN - SERUM 6.8 g/dL (6.4-8.2)
[2020-02-01 08:14] LABS: ANION GAP 11.9 mmol/L (8-16); CREATININE - SERUM 1.6 mg/dL (0.6-1.3); POTASSIUM - SERUM 4.5 mmol/L (3.5-5.1)
[2020-02-01 09:45] VITALS: BP 106/58
[2020-02-01 12:11] VITALS: BP 127/63
[2020-02-01 17:32] VITALS: BP 128/53
[2020-02-01 20:26] VITALS: BP 140/64
[2020-02-02 00:16] VITALS: BP 127/65
--- NOTE | 2020-02-02 06:22 | NUR ---
PATIENT IV OUT, CATH IN TACT. ATTEMPTED TO RESITE PATIENT IV BUT PATIENT STATES HE IS GOING TO BE DC'ING TODAY AND DOES NOT WISH TO RESTART AT THIS TIME. CALL LIGHT CLOSE. CPOC.
[2020-02-02 06:48] LABS: BASOPHILS 0.4 % (0-2); EOSINOPHILS 4.1 % (0-7); HEMATOCRIT 37.7 % (42.0-54.0); HEMOGLOBIN 12.1 g/dL (13.5-17.5); IMMATURE GRANULOCYTES 0.1 % (0-5); LYMPHOCYTES 17.1 % (15-50); MCH 30.8 pg (26.0-34.0); MCHC 32.1 g/dL (31.0-37.0); MCV 95.9 fL (80.0-100.0); MEAN PLATELET VOLUME 11.2 fL (7.4-10.4); MONOCYTES 8.6 % (2-11); NEUTROPHILS 69.7 % (40-80); PLATELET COUNT 212 10x3/uL (130-400); RBC 3.93 10x6/uL (4.20-6.10); RDW 13.3 % (11.5-14.5); WBC 8.4 10x3/uL (4.8-10.8)
[2020-02-02 07:38] LABS: ALBUMIN 3.6 g/dL (3.4-5.0); ANION GAP 13.2 mmol/L (8-16); BILIRUBIN - TOTAL 0.31 mg/dL (0.2-1.3); CARBON DIOXIDE 23.6 mmol/L (21.0-32.0); CREATININE - SERUM 1.6 mg/dL (0.6-1.3); POTASSIUM - SERUM 4.8 mmol/L (3.5-5.1); PROTEIN - SERUM 7.8 g/dL (6.4-8.2)
[2020-02-02 08:54] VITALS: BP 143/69
--- NOTE | 2020-02-02 10:14 | MORECARE ---
CASE MANAGEMENT DISCHARGE SUMMARY PATIENT: NAHID ALARCON UNIT: [id number] ADM DATE: 01/21/20 AGE: 59 : 64 SEX: M ROOM/BED: D.2229 AUTHOR: CORETTA,DOC PHYSICIAN: REFERRING PHYSICIAN: RAÚL BRANNON MD DATE OF SERVICE: 02/02/20 Discharge Plan Patient Name: NAHID ALARCON Facility: [facility]:[place] : 1960 Planned Disposition: Anticipated Discharge Date: Discharge Date: Expected LOS: Initial Reviewer: [email or web address] Initial Review Date: 01/21/2020 Generated: 02/02/20 11:14 am Comments DCP- Discharge Planning Updated by [email or web address]: Tasneem Hansen on 02/02/20 9:[address] CM faxed required information through 02/01 to [facility] (ph [phone], fx [phone]). Await CB. DCP- Discharge Planning Updated by [email or web address]: Ann Marie Wells on 01/30/20 2:[address] Patient Name: NAHID ALARCON Admission Status: ER Accout number: [id number] Admission Date: 01-21-2020 : 1960 Admission Diagnosis:ATHSCL HEART DISEASE OF [place] COR ART W UNSTABLE ANG P Attending: SALUD, Current LOS: 9 Anticipated DC Date: Planned Disposition: Primary Insurance: MEDICAID [place] Discharge Planning Comments: FAXED UPDATED CLINICALS TO DR. AGUILAR AT [facility] AT [phone]. WAITING CALL BACK FROM [facility] IF THEY WILL ACCEPT. Post Graduate Intern: Ann Marie Wells DCP- Discharge Planning Updated by [email or web address]: Monica Garcia on 01/27/20 1:[address] I HAVE CALLED [facility] I SPOKE WITH MUMTAZ THE CHARGE NURSE IN THE ER ABOUT THE REFERRAL, SHE STATED TO SEND EVERYTHING AGAIN AND SHE WOULD HAVE HER DR LOOK AT IT AND GET BACK WITH ME. PATIENT IS STABLE TO GO THERE IF ACCEPTED DCP- Discharge Planning Updated by [id number]: Kam Arriaza on 01/25/20 1:[address] CM CALLED [facility] [place], [place]. ALL STATE THEY HAVE NO BEDE AVAILIBILITY, AND ARE UNSURE OF THE NEXT BED. [facility] STATES THEY ARE ON DIVERT AND CAN NOT ACCEPT ANY PSYCH TRANSFERS TO THE HOSPITAL. ABBY CALLED [facility] AND SPOKE TO WENDY AT [phone]. FAXED CLINCAL REFERRAL TO [phone]. WENDY ASKED THE DR COULD CALL DR AGUILAR AT [phone] FOR A DOC TO DOC. ABBY PROVIDED INFORMATION TO DR GORDON. ABBY WILL CONTINUE TO ASSIST IN DC PLANNING. KAM ARRIAZA DCP- Discharge Planning Updated by [id number]: Ann Marie Wells on 01/23/20 2:[address] Patient Name: NAHID ALARCON Admission Status: ER Accout number: [id number] Admission Date: 01-21-2020 : 1960 Admission Diagnosis: Attending: SALUD, Current LOS: 2 Anticipated DC Date: Planned Disposition: Primary Insurance: MEDICAID [place] Discharge Planning Comments: RECEIVED CALL BACK FROM [facility] AND THEY DECLINED DUE TO HIS MEDICAL ISSUES. COVID AND TOX SCREEN HAS BEEN ORDERED. Post Graduate Intern: Ann Marie Wells Appended by Ann Marie Wells on 01/23/2020 15:51 CDT: SPOKE WITH [facility] AND FAXED DOCUMENTS TO THEM. WAITING CALL BACK FOR PLACEMENT. DCP- Discharge Planning Updated by [id number]: Ann Marie Wells on 01/23/20 12:[address] Patient Name: NAHID ALARCON Admission Status: ER Accout number: [id number] Admission Date: 01-21-2020 : 1960 Admission Diagnosis: Attending: SALUD, Current LOS: 2 Anticipated DC Date: Planned Disposition: Primary Insurance: MEDICAID [place] Discharge Planning Comments: REFERRAL FAXED TO [facility], SPOKE WITH LOUIS AT [facility] AND WAITING CALL BACK. Post Graduate Intern: Ann Marie Wells Last DP export: 01/30/20 2:53 p Patient Name: NAHID ALARCON Page 36264 at 1014 All edits/amendments must be made on the electronic document DICTATION DATE: 02/02/20 1014 PIPE CONNECTOR: JUNIOR 02/02/20 1014 RPT#: [id number] DC DATE: STATUS: ADM IN [place] [address] [facility] [place] [address] END OF REPORT
[2020-02-02 13:05] VITALS: BP 136/61
[2020-02-02 17:37] VITALS: BP 144/68
--- NOTE | 2020-02-02 18:18 | NUR ---
I have reviewed this patient and I concur with the Shift Assessment completed by the Licensed Practical Nurse today this shift.
--- NOTE | 2020-02-02 20:08 | PN ---
PATIENT:NAHID ALARCON MEDICAL RECORD: [id number] LOCATION:D.MS Head222 ADMISSION DATE: 01/21/20 PROGRESS NOTE DATE OF SERVICE: 02/02/2020 SUBJECTIVE: The patient's case was discussed. He has no new complaint. OBJECTIVE: The patient continues to have a depressed mood and to be in need of psychiatric inpatient care. ASSESSMENT: Major depression. PLAN: The receiving physician, Dr. Miller called me Sunday evening. She said that she had reviewed the labs and that he has renal failure and she is not going to be able to take him at this time until that is addressed that were cleared. She did say that she would be willing to reconsider him once the renal issue is addressed. In actuality, she did not say renal failure, but renal insufficiency, which is correct. She has a creatinine of 1.6 and that is essentially unchanged from admission, but it is something she would like addressed before she is willing to take him or able to take him. TRANSINT:[id number] Voice Confirmation ID: [id number] DOCUMENT ID: [id number] MARINO ROBERTS MD at 2008 CC: [id number] DICTATION DATE: 02/02/20 1547 TECHNOLOGY ADOPTION MANAGER: 02/02/20 1702 ADM IN [place] [id number] [place] [address]
[2020-02-02 22:03] VITALS: BP 120/69
--- NOTE | 2020-02-02 22:33 | NUR ---
PATIENT RESTING IN BED WITH NO S/S OF DISTRESS. ADMINISTERED MEDS PER ORDERS. PATIENT DENIES OTHER NEEDS. WILL CONTINUE TO MONITOR. ENCOURAGED TO CALL IF HE HAS NEEDS.
[2020-02-03] VITALS: BP 145/69
[2020-02-03 04:00] VITALS: BP 117/63
[2020-02-03 07:38] LABS: BASOPHILS 0.4 % (0-2); EOSINOPHILS 5.1 % (0-7); HEMATOCRIT 39.4 % (42.0-54.0); HEMOGLOBIN 12.8 g/dL (13.5-17.5); IMMATURE GRANULOCYTES 0.1 % (0-5); LYMPHOCYTES 18.1 % (15-50); MCH 30.8 pg (26.0-34.0); MCHC 32.5 g/dL (31.0-37.0); MCV 94.9 fL (80.0-100.0); MEAN PLATELET VOLUME 11.4 fL (7.4-10.4); MONOCYTES 10.3 % (2-11); PLATELET COUNT 216 10x3/uL (130-400); RBC 4.15 10x6/uL (4.20-6.10); RDW 13.1 % (11.5-14.5); WBC 7.9 10x3/uL (4.8-10.8)
[2020-02-03 07:44] LABS: ALBUMIN 3.5 g/dL (3.4-5.0); ANION GAP 11.8 mmol/L (8-16); BILIRUBIN - TOTAL 0.3 mg/dL (0.2-1.3); CALCIUM 9.2 mg/dL (8.5-10.1); CARBON DIOXIDE 23.9 mmol/L (21.0-32.0); CREATININE - SERUM 1.7 mg/dL (0.6-1.3); POTASSIUM - SERUM 4.7 mmol/L (3.5-5.1); PROTEIN - SERUM 7.7 g/dL (6.4-8.2)
--- NOTE | 2020-02-03 08:15 | NUR ---
REQUESTED AND GIVEN 650MG TYLENOL PO FOR C/O HEADACHE. WILL MONITOR.
--- NOTE | 2020-02-03 09:47 | NUR ---
PT ALERT X 4. BREATH SOUNDS CLEAR BILAT. BOWEL SOUNDS HYPERACTIVE X 4, PT REPORTING DIARRHEA AND EXCESS GAS, WANTING MEDICATION FOR THIS, WILL DISCUSS WITH DOCTOR. NO IV ACCESS AT THIS TIME. BED LOW, CALL LIGHT IN REACH. NO OTHER NEEDS AT THIS TIME.
[2020-02-03 11:03] VITALS: BP 105/49
--- NOTE | 2020-02-03 14:39 | NUR ---
Nutrition follow-up: Pt receiving a consistent CHO diet with po intake 100% of most meals Lab s reviewe Wt: 229# PO intake continues to be good RDN following.
[2020-02-03 15:00] VITALS: BP 111/49
[2020-02-03 15:15] VITALS: BP 104/60
[2020-02-03 20:00] VITALS: BP 117/61
[2020-02-04] VITALS: BP 128/66
[2020-02-04 04:00] VITALS: BP 125/62
[2020-02-04 06:22] LABS: BASOPHILS 0.5 % (0-2); EOSINOPHILS 3.8 % (0-7); HEMATOCRIT 40.7 % (42.0-54.0); HEMOGLOBIN 13.4 g/dL (13.5-17.5); IMMATURE GRANULOCYTES 0.2 % (0-5); LYMPHOCYTES 17.3 % (15-50); MCH 31.2 pg (26.0-34.0); MCHC 32.9 g/dL (31.0-37.0); MCV 94.9 fL (80.0-100.0); MEAN PLATELET VOLUME 11.3 fL (7.4-10.4); MONOCYTES 7.3 % (2-11); NEUTROPHILS 70.9 % (40-80); PLATELET COUNT 229 10x3/uL (130-400); RBC 4.29 10x6/uL (4.20-6.10); RDW 13.1 % (11.5-14.5); WBC 8.3 10x3/uL (4.8-10.8)
--- NOTE | 2020-02-04 06:50 | NUR ---
A&O RESTING IN BED WITH EYES OPEN. SITTER OUTSIDE OF DOOR. NO C/O PAIN. NO S/S OF ACUTE DISTRESS NOTED. UP WITH CANE. ON TELEMETRY SR. AWAITING PLACEMENT. DIABETIC ULCER TO LEFT FOOT. DENIES ANY NEEDS AT THIS TIME. CALL LIGHT IN REACH. WILL CONTINUE TO MONITOR.
[2020-02-04 06:56] LABS: ALBUMIN 3.8 g/dL (3.4-5.0); ANION GAP 10.4 mmol/L (8-16); BILIRUBIN - TOTAL 0.24 mg/dL (0.2-1.3); CALCIUM 9.3 mg/dL (8.5-10.1); CARBON DIOXIDE 25.7 mmol/L (21.0-32.0); CREATININE - SERUM 1.9 mg/dL (0.6-1.3); POTASSIUM - SERUM 5.1 mmol/L (3.5-5.1); PROTEIN - SERUM 8.3 g/dL (6.4-8.2)
--- NOTE | 2020-02-04 07:11 | NUR ---
I have reviewed this patient and I concur with the Shift Assessment completed by the Licensed Practical Nurse today this shift.
[2020-02-04 09:58] VITALS: BP 127/66
[2020-02-04 12:20] VITALS: Ht 175.3 cm; Wt 104.3 kg
[2020-02-04 13:33] VITALS: BP 112/52
[2020-02-04 18:25] VITALS: BP 116/65
[2020-02-04 20:00] VITALS: BP 143/62
[2020-02-05 04:00] VITALS: BP 152/77
[2020-02-05 05:37] LABS: BASOPHILS 0.3 % (0-2); EOSINOPHILS 5.3 % (0-7); HEMATOCRIT 38.4 % (42.0-54.0); HEMOGLOBIN 12.7 g/dL (13.5-17.5); IMMATURE GRANULOCYTES 0.3 % (0-5); LYMPHOCYTES 17.1 % (15-50); MCH 31.2 pg (26.0-34.0); MCHC 33.1 g/dL (31.0-37.0); MCV 94.3 fL (80.0-100.0); MEAN PLATELET VOLUME 11.1 fL (7.4-10.4); MONOCYTES 8.2 % (2-11); NEUTROPHILS 68.8 % (40-80); PLATELET COUNT 207 10x3/uL (130-400); RBC 4.07 10x6/uL (4.20-6.10); RDW 12.9 % (11.5-14.5); WBC 7.7 10x3/uL (4.8-10.8)
[2020-02-05 06:08] LABS: ALBUMIN 3.3 g/dL (3.4-5.0); ANION GAP 10.8 mmol/L (8-16); BILIRUBIN - TOTAL 0.32 mg/dL (0.2-1.3); CALCIUM 8.9 mg/dL (8.5-10.1); CARBON DIOXIDE 26.9 mmol/L (21.0-32.0); CREATININE - SERUM 1.7 mg/dL (0.6-1.3); MAGNESIUM - SERUM 2.1 mg/dL (1.8-2.4); POTASSIUM - SERUM 4.7 mmol/L (3.5-5.1); PROTEIN - SERUM 7.3 g/dL (6.4-8.2)
--- NOTE | 2020-02-05 06:50 | NUR ---
A&O RESTING IN BED WITH EYES OPEN. NO C/O PAIN. NO S/S OF ACUTE DISTRESS NOTED. UP WITH CANE. ON TELEMETRY SR 68. IV TO RIGHT FOREARM, NS INFUSING @ 75ML/HR. SITE PATENT WITHOUT REDNESS OR SWELLING. SITTER OUTSIDE OF ROOM. DENIES ANY NEEDS AT THIS TIME. CALL LIGHT IN REACH. WILL CONTINUE TO MONITOR.
--- NOTE | 2020-02-05 07:19 | NUR ---
I have reviewed this patient and I concur with the Shift Assessment completed by the Licensed Practical Nurse today this shift.
--- NOTE | 2020-02-05 08:12 | NUR ---
LYING IN BED,WITHOUT DISTRESS.DOOR OPEN
[2020-02-05 08:40] VITALS: BP 134/61
[2020-02-05 12:25] VITALS: BP 96/60
--- NOTE | 2020-02-05 15:23 | PN ---
PATIENT:NAHID ALARCON MEDICAL RECORD: [id number] LOCATION:D.MS Head222 ADMISSION DATE: 01/21/20 PROGRESS NOTE DATE OF SERVICE: 02/04/2020 SUBJECTIVE: The patient's case was discussed with staff. He has no new complaint. OBJECTIVE: The patient still has a depressed mood and endorses suicidal thoughts. I suspect part of this is related to the frustration of just being in this hospital room for the past 2 weeks. I also suspect part of it is the fact that he is fearful we are going to just turn him loose on the street and he is homeless. I have explained to him that we never do that, and that it is important that he tell me the truth about his suicidal thoughts and that we will help him with placement even if he is not suicidal. He affirms that he understands this and tells me that he is suicidal. He does look depressed, but again I suspect he has probably had chronic depression. He has also been stuck in the hospital room and in that bed with a sitter for 2 weeks. He also has no support system or home. I do not think he is receiving the appropriate level of care he needs here, but I have no other suggestion about placing him since I know a very extensive efforts have been made by case management to do so. TRANSINT:[id number] Voice Confirmation ID: [id number] DOCUMENT ID: [id number] MARINO ROBERTS MD at 1523 CC: [id number] DICTATION DATE: 02/04/20 1600 SEARCH MARKETING COORDINATOR: 02/05/20 0117 ADM IN [facility] [address] [place] [address]
[2020-02-05 16:38] VITALS: BP 101/44
--- NOTE | 2020-02-05 18:46 | NUR ---
RESTING IN BED WITH EYES CLOSED. RESPIRATIONS EVEN AND UNLABORED. NO S/S OF ACUTE DISTRESS NOTED. CALL LIGHT IN REACH. WILL CONTINUE TO MONITOR.
[2020-02-05 20:00] VITALS: BP 125/61
--- NOTE | 2020-02-05 21:00 | NUR ---
ASSUMED CARE OF PATIENT AT 1900, PATIENT REQUESTING SHOWER, NO DISTRESS NOTED, IV INFUSING WITHOUT COMPLICATIONS, PATIENT WEARING A BRIEF, INCONTINENT AT TIMES, WILL CONTINUE TO MONITOR PATIENT, CALL LIGHT WITHIN REACH
[2020-02-06] VITALS: BP 132/76
[2020-02-06 04:00] VITALS: BP 142/82
[2020-02-06 05:33] LABS: BASOPHILS 0.4 % (0-2); EOSINOPHILS 5.4 % (0-7); HEMATOCRIT 38.5 % (42.0-54.0); HEMOGLOBIN 12.8 g/dL (13.5-17.5); IMMATURE GRANULOCYTES 0.1 % (0-5); LYMPHOCYTES 19.3 % (15-50); MCH 31.3 pg (26.0-34.0); MCHC 33.2 g/dL (31.0-37.0); MCV 94.1 fL (80.0-100.0); MEAN PLATELET VOLUME 10.7 fL (7.4-10.4); MONOCYTES 7.8 % (2-11); PLATELET COUNT 206 10x3/uL (130-400); RBC 4.09 10x6/uL (4.20-6.10); RDW 13.2 % (11.5-14.5)
[2020-02-06 05:53] LABS: ALBUMIN 3.4 g/dL (3.4-5.0); ANION GAP 12.1 mmol/L (8-16); BILIRUBIN - TOTAL 0.29 mg/dL (0.2-1.3); CARBON DIOXIDE 26.8 mmol/L (21.0-32.0); CREATININE - SERUM 1.6 mg/dL (0.6-1.3); POTASSIUM - SERUM 4.9 mmol/L (3.5-5.1); PROTEIN - SERUM 7.4 g/dL (6.4-8.2)
--- NOTE | 2020-02-06 06:50 | NUR ---
A&O RESTING IN BED WITH EYES OPEN. NO C/O PAIN. NO S/S OF ACUTE DISTRESS NOTED. SITTER AT DOOR. UP WITH CANE. DRESSING TO LEFT FOOT, CHANGED LAST NIGHT. WEARS BRIEFS. IV TO RIGHT FOREARM, NS INFUSING @ 75ML/HR. SITE PATENT WITHOUT REDNESS OR SWELLING. DENIES ANY NEEDS AT THIS TIME. CALL LIGHT IN REACH. WILL CONTINUE TO MONITOR.
[2020-02-06 08:13] LABS: HEPATITIS C ANTIBODY <0.1 (0.0-0.9)
[2020-02-06 09:16] VITALS: BP 138/80
--- NOTE | 2020-02-06 12:19 | MORECARE ---
CASE MANAGEMENT DISCHARGE SUMMARY PATIENT: NAHID ALARCON UNIT: [id number] ADM DATE: 01/21/20 AGE: 59 : 64 SEX: M ROOM/BED: D.2229 AUTHOR: CORETTA,DOC PHYSICIAN: REFERRING PHYSICIAN: RAÚL BRANNON MD DATE OF SERVICE: 02/06/20 Discharge Plan Patient Name: NAHID ALARCON Facility: [facility]:[place] : 1960 Planned Disposition: Anticipated Discharge Date: Discharge Date: Expected LOS: Initial Reviewer: [id number] Initial Review Date: 01/21/2020 Generated: 02/06/20 1:18 pm Comments DCP- Discharge Planning Updated by [email or web address]: Ann Marie Wells on 02/06/20 11:[address] Patient Name: NAHID ALARCON Admission Status: ER Accout number: [id number] Admission Date: 01-21-2020 : 1960 Admission Diagnosis:ATHSCL HEART DISEASE OF [place] ART W UNSTABLE ANG P Attending: SALUD, Current LOS: 16 Anticipated DC Date: Planned Disposition: Primary Insurance: MED[place]ID [place] Discharge Planning Comments: FAXED UPDATE TO DR. AGUILAR AT [facility] IN [facility] TO [phone]. WAITING CALL BACK TO SEE IF THEY WILL ACCEPT PATIENT YET. Procurement Agent: Ann Marie Wells DCP- Discharge Planning Updated by [id number]: Tasneem Hansen on 02/02/20 9:[address] CM faxed required information through 02/01 to [facility] (ph [phone], fx [phone]). Await CB. DCP- Discharge Planning Updated by [id number]: Ann Marie Wells on 01/30/20 2:[address] Patient Name: NAHID ALARCON Admission Status: ER Accout number: [id number] Admission Date: 01-21-2020 : 1960 Admission Diagnosis:ATHSCL HEART DISEASE OF [place] ART W UNSTABLE ANG P Attending: SALUD, Current LOS: 9 Anticipated DC Date: Planned Disposition: Primary Insurance: [place]ID [place] Discharge Planning Comments: FAXED UPDATED CLINICALS TO DR. AGUILAR AT [facility] AT [phone]. WAITING CALL BACK FROM [facility] IF THEY WILL ACCEPT. Procurement Agent: Ann Marie Wells DCP- Discharge Planning Updated by [email or web address]: Monica Garcia on 01/27/20 1:[address] I HAVE CALLED [facility] I SPOKE WITH MUMTAZ THE CHARGE NURSE IN THE ER ABOUT THE REFERRAL, SHE STATED TO SEND EVERYTHING AGAIN AND SHE WOULD HAVE HER DR LOOK AT IT AND GET BACK WITH ME. PATIENT IS STABLE TO GO THERE IF ACCEPTED DCP- Discharge Planning Updated by [id number]: Kam Arriaza on 01/25/20 1:[address] CM CALLED [facility], [facility] [place], [facility], [facility]. ALL STATE THEY HAVE NO BEDE AVAILIBILITY, AND ARE UNSURE OF THE NEXT BED. [facility] AND [facility] STATES THEY ARE ON DIVERT AND CAN NOT ACCEPT ANY PSYCH TRANSFERS TO THE HOSPITAL. CM CALLED [facility] AND SPOKE TO WENDY AT [phone]. FAXED CLINCAL REFERRAL TO [phone]. WENDY ASKED THE DR COULD CALL DR AGUILAR AT [phone] FOR A DOC TO DOC. CM PROVIDED INFORMATION TO DR GORDON. CM WILL CONTINUE TO ASSIST IN DC PLANNING. KAM ARRIAZA DCP- Discharge Planning Updated by [email or web address]: Ann Marie Wells on 01/23/20 2:[address] Patient Name: NAHID ALARCON Admission Status: ER Accout number: [id number] Admission Date: 01-21-2020 : 1960 Admission Diagnosis: Attending: SALUD, Current LOS: 2 Anticipated DC Date: Planned Disposition: Primary Insurance: MED[place]ID [place] Discharge Planning Comments: RECEIVED CALL BACK FROM [facility] AND THEY DECLINED DUE TO HIS MEDICAL ISSUES. COVID AND TOX SCREEN HAS BEEN ORDERED. Procurement Agent: Ann Marie Wells Appended by Ann Marie Wells on 01/23/2020 15:51 CDT: SPOKE WITH [facility] TRANSFER CENTER AND FAXED DOCUMENTS TO THEM. WAITING CALL BACK FOR PLACEMENT. DCP- Discharge Planning Updated by [id number]: Ann aMrie Wells on 01/23/20 12:[address] Patient Name: NAHID ALARCON Admission Status: ER Accout number: [id number] Admission Date: 01-21-2020 : 1960 Admission Diagnosis: Attending: SALUD, Current LOS: 2 Anticipated DC Date: Planned Disposition: Primary Insurance: MEDICAID [place] Discharge Planning Comments: REFERRAL FAXED TO [facility], SPOKE WITH LOUIS AT [facility] AND WAITING CALL BACK. Procurement Agent: Ann Marie ALEGRE export: 02/02/20 9:14 a Patient Name: NAHID ALARCON Page [id number] at 1219 All edits/amendments must be made on the electronic document DICTATION DATE: 02/06/20 1218 RESEARCH SOFTWARE ENGINEER: JUNIOR 02/06/20 1218 RPT#: [id number] DC DATE: STATUS: ADM IN [facility] [address] [place] [address] END OF REPORT
[2020-02-06 12:57] VITALS: BP 122/58
--- NOTE | 2020-02-06 13:01 | NUR ---
NUTRITION FOLLOW UP: COMMENTS: Patient has been eating well with 100% po intake most meals. DIET: Diabetic diet SUPPLEMENT: Damien BID PO INTAKE: 88% avg for last 9 meals WEIGHT: 01/21- 230 lbs BM: x1 on 02/04 SIG LABS: BUN-42(H), Cr-1.6(H), POC Glucose- 176, 118, 129, 182 SIG MEDS: Imodium, Spironolactone, Protonix, Humalog NS @ 75ml/hr RD to continue to follow and monitor patient DHS
[2020-02-06 13:11] LABS: SPE - ALBUMIN 3.3 g/dL (2.9-4.4); SPE - ALPHA-1 GLOBULIN 0.2 g/dL (0.0-0.4); SPE - ALPHA-2 GLOBULIN 0.9 g/dL (0.4-1.0); SPE - BETA GLOBULIN 0.9 g/dL (0.7-1.3); SPE - GAMMA GLOBULIN 1.4 g/dL (0.4-1.8); SPE - M-SPIKE Not Observed g/dL (Not Observed); SPE - TOTAL PROTEIN 6.6 g/dL (6.0-8.5)
--- NOTE | 2020-02-06 13:36 | NUR ---
I have reviewed this patient and I concur with the Shift Assessment completed by the Licensed Practical Nurse today this shift.
[2020-02-06 15:26] LABS: BILIRUBIN NEGATIVE (NEGATIVE); KETONE NEGATIVE (NEGATIVE); NITRITE NEGATIVE (NEGATIVE); UROBILINOGEN NORMAL (NORMAL)
[2020-02-06 17:06] VITALS: BP 126/63
--- NOTE | 2020-02-06 18:44 | NUR ---
A&O RESTING IN BED WITH EYES OPEN. NO C/O PAIN. NO S/S OF ACUTE DISTRESS NOTED. DENIES ANY NEEDS AT THIS TIME. CALL LIGHT IN REACH. WILL CONTINUE TO MONITOR.
--- NOTE | 2020-02-06 19:10 | NUR ---
ASSUMED CARE OF PATIENT AT 1900, PATIENT AWAKE SITTING ON EDGE OF BED EATING, NO DISTRESS NOTED, DENIES NEEDS AT THIS TIME, IV INFUSING WITHOUT COMPLICATIONS, WILL CONTINUE TO MONITOR PATIENT, CALL LIGHT WITHIN REACH, SITTER OUTSIDE OF ROOM.
[2020-02-06 20:00] VITALS: BP 126/69
--- NOTE | 2020-02-06 21:17 | PN ---
PATIENT:NAHID ALARCON MEDICAL RECORD: [id number] LOCATION:D.MS Head222 ADMISSION DATE: 01/21/20 PROGRESS NOTE DATE OF SERVICE: 02/06/2020 SUBJECTIVE: The patient's case was discussed with staff. He has no new complaint. OBJECTIVE: The patient is in good behavioral control. He has poor insight about his situation, continues to say he does not want to live. ASSESSMENT: Major depression. PLAN: The patient in need of inpatient psychiatric care once medically stabilized. NTS:[id number] Voice Confirmation ID: [id number] DOCUMENT ID: [id number] MARINO ROBERTS MD at 2117 CC: [id number] DICTATION DATE: 02/06/20 1359 RADIATION CONTROL WORKER: 02/06/20 1812 ADM IN [place] [id number] [place] [address]
[2020-02-07 04:00] VITALS: BP 138/78
[2020-02-07 07:02] LABS: ALBUMIN 3.4 g/dL (3.4-5.0); ANION GAP 15.7 mmol/L (8-16); BASOPHILS 0.7 % (0-2); BILIRUBIN - TOTAL 0.18 mg/dL (0.2-1.3); CALCIUM 8.6 mg/dL (8.5-10.1); CARBON DIOXIDE 21.5 mmol/L (21.0-32.0); CREATININE - SERUM 1.6 mg/dL (0.6-1.3); HEMATOCRIT 36.6 % (42.0-54.0); IMMATURE GRANULOCYTES 0.1 % (0-5); LYMPHOCYTES 19.7 % (15-50); MCH 30.8 pg (26.0-34.0); MCHC 32.8 g/dL (31.0-37.0); MCV 94.1 fL (80.0-100.0); MONOCYTES 8.3 % (2-11); NEUTROPHILS 66.2 % (40-80); PLATELET COUNT 215 10x3/uL (130-400); POTASSIUM - SERUM 5.2 mmol/L (3.5-5.1); PROTEIN - SERUM 6.8 g/dL (6.4-8.2); RBC 3.89 10x6/uL (4.20-6.10); RDW 13.2 % (11.5-14.5); WBC 7.6 10x3/uL (4.8-10.8)
[2020-02-07 09:34] VITALS: BP 162/82
--- NOTE | 2020-02-07 09:47 | NUR ---
PT ALERT X 4. BREATH SOUNDS CLEAR BILAT. IV TO RIGHT FOREARM, PATENT, DRESSING CDI. PT REPORTING PAIN OF 6/10, MEDICATED PER ORDERS, WILL CONTINUE TO MONITOR. DRESSING TO LEFT FOOT CDI. BED LOW, CALL LIGHT IN REACH. NO OTHER NEEDS AT THIS TIME.
[2020-02-07 13:32] VITALS: BP 126/61
[2020-02-07 17:45] VITALS: BP 135/58
--- NOTE | 2020-02-07 19:43 | NUR ---
PATIENT RESTING IN BED WITH EYES CLOSED AND NO S/S OF DISTRESS. SITTER AT BEDSIDE. BED IN LOWEST POSITION AND CL WITHIN REACH. WILL CONTINUE TO MONITOR.
--- NOTE | 2020-02-07 19:43 | NUR ---
PATIENT RESTING IN BED WTIH EYES CLOSED AND NO S/S OF DISTRESS. BED IN LOWEST POSITION AND CL WITHIN REACH. WILL CONTINUE TO MONITOR.
[2020-02-07 20:00] VITALS: BP 115/47
[2020-02-08 09:17] VITALS: BP 184/96
[2020-02-08 10:09] LABS: BASOPHILS 0.5 % (0-2); EOSINOPHILS 5.6 % (0-7); HEMATOCRIT 39.4 % (42.0-54.0); HEMOGLOBIN 12.6 g/dL (13.5-17.5); IMMATURE GRANULOCYTES 0.2 % (0-5); LYMPHOCYTES 20.2 % (15-50); MCH 30.4 pg (26.0-34.0); MCV 94.9 fL (80.0-100.0); MONOCYTES 7.4 % (2-11); NEUTROPHILS 66.1 % (40-80); PLATELET COUNT 228 10x3/uL (130-400); RBC 4.15 10x6/uL (4.20-6.10); RDW 13.2 % (11.5-14.5); WBC 6.6 10x3/uL (4.8-10.8)
[2020-02-08 10:24] LABS: ALBUMIN 3.4 g/dL (3.4-5.0); ANION GAP 10.9 mmol/L (8-16); BILIRUBIN - TOTAL 0.27 mg/dL (0.2-1.3); CALCIUM 8.9 mg/dL (8.5-10.1); CARBON DIOXIDE 26.5 mmol/L (21.0-32.0); CREATININE - SERUM 1.6 mg/dL (0.6-1.3); PROTEIN - SERUM 7.5 g/dL (6.4-8.2)
[2020-02-08 10:28] LABS: POTASSIUM - SERUM 4.4 mmol/L (3.5-5.1)
--- NOTE | 2020-02-08 10:48 | NUR ---
PT ALERT X 4. BREATH SOUNDS CLEAR BILAT. IV TO RIGHT FOREARM, PATENT, DRESSING CDI. TELEMETRY IN PLACE. DRESSING TO LEFT FOOT CDI. BED LOW, CALL LIGHT IN REACH. NO OTHER NEEDS AT THIS TIME.
[2020-02-08 13:30] VITALS: BP 154/78
[2020-02-08 19:09] VITALS: BP 151/76
[2020-02-08 20:00] VITALS: BP 129/58
[2020-02-09] VITALS: BP 93/57
[2020-02-09 04:00] VITALS: BP 114/60
[2020-02-09 05:27] LABS: BASOPHILS 0.5 % (0-2); EOSINOPHILS 4.1 % (0-7); HEMATOCRIT 38.6 % (42.0-54.0); HEMOGLOBIN 12.8 g/dL (13.5-17.5); IMMATURE GRANULOCYTES 0.1 % (0-5); MCH 31.1 pg (26.0-34.0); MCHC 33.2 g/dL (31.0-37.0); MCV 93.9 fL (80.0-100.0); MEAN PLATELET VOLUME 10.9 fL (7.4-10.4); MONOCYTES 6.9 % (2-11); NEUTROPHILS 73.4 % (40-80); PLATELET COUNT 241 10x3/uL (130-400); RBC 4.11 10x6/uL (4.20-6.10); RDW 13.1 % (11.5-14.5)
[2020-02-09 05:30] LABS: WBC 8.4 10x3/uL (4.8-10.8)
[2020-02-09 05:51] LABS: ALBUMIN 3.4 g/dL (3.4-5.0); BILIRUBIN - TOTAL 0.29 mg/dL (0.2-1.3); CALCIUM 8.9 mg/dL (8.5-10.1); CARBON DIOXIDE 23.8 mmol/L (21.0-32.0); CREATININE - SERUM 1.5 mg/dL (0.6-1.3); PROTEIN - SERUM 7.6 g/dL (6.4-8.2)
[2020-02-09 05:57] LABS: ANION GAP 11.6 mmol/L (8-16); POTASSIUM - SERUM 5.4 mmol/L (3.5-5.1)
[2020-02-09 08:56] VITALS: BP 168/67
--- NOTE | 2020-02-09 10:30 | MORECARE ---
CASE MANAGEMENT DISCHARGE SUMMARY PATIENT: NAHID ALARCON UNIT: [id number] ADM DATE: 01/21/20 AGE: 59 : 64 SEX: M ROOM/BED: D.2229 AUTHOR: CORETTA,DOC PHYSICIAN: REFERRING PHYSICIAN: RAÚL BRANNON MD DATE OF SERVICE: 02/09/20 Discharge Plan Patient Name: NAHID ALARCON Facility: [facility]:[place] : 1960 Planned Disposition: Anticipated Discharge Date: Discharge Date: Expected LOS: Initial Reviewer: [id number] Initial Review Date: 01/21/2020 Generated: 02/09/20 11:29 am Comments DCP- Discharge Planning Updated by [email or web address]: Ann Marie Wells on 02/09/20 9:[address] Patient Name: NAHID ALARCON Admission Status: ER Accout number: [id number] Admission Date: 01-21-2020 : 1960 Admission Diagnosis:ATHSCL HEART DISEASE OF [place] ART W UNSTABLE ANG P Attending: SALUD, Current LOS: 19 Anticipated DC Date: Planned Disposition: Primary Insurance: MEDICAID [place] Discharge Planning Comments: FAXED CLINICAL UPDATE TO [facility]. WAITNG CALL BACK ABOUT PLACEMENT. Drywall Applicator: Ann Marie Wells DCP- Discharge Planning Updated by [email or web address]: Ann Marie Wells on 02/06/20 11:[address] Patient Name: NAHID ALARCON Admission Status: ER Accout number: [id number] Admission Date: 01-21-2020 : 1960 Admission Diagnosis:ATHSCL HEART DISEASE OF [place] ART W UNSTABLE ANG P Attending: SALUD, Current LOS: 16 Anticipated DC Date: Planned Disposition: Primary Insurance: MEDICAID [place] Discharge Planning Comments: FAXED UPDATE TO DR. AGUILAR AT [facility] [place] [facility] TO [phone]. WAITING CALL BACK TO SEE IF THEY WILL ACCEPT PATIENT YET. Drywall Applicator: Ann Marie Wells DCP- Discharge Planning Updated by [id number]: Tasneem Hansen on 02/02/20 9:[address] CM faxed required information through 02/01 to [facility] (ph [phone], fx [phone]). Await CB. DCP- Discharge Planning Updated by [email or web address]: Ann Marie Priscilla on 01/30/20 2:[address] Patient Name: NAHID ALARCON Admission Status: ER Accout number: [id number] Admission Date: 01-21-2020 : 1960 Admission Diagnosis:ATHSCL HEART DISEASE OF [place] ART W UNSTABLE ANG P Attending: SALUD, Current LOS: 9 Anticipated DC Date: Planned Disposition: Primary Insurance: [place] Discharge Planning Comments: FAXED UPDATED CLINICALS TO DR. AGUILAR AT [facility] AT [phone]. WAITING CALL BACK FROM [facility] IF THEY WILL ACCEPT. Drywall Applicator: Ann Marieyanet Wells DCP- Discharge Planning Updated by [id number]: Monica Garcia on 01/27/20 1:[address] I HAVE CALLED [facility] I SPOKE WITH MUMTAZ THE CHARGE NURSE IN THE ER ABOUT THE REFERRAL, SHE STATED TO SEND EVERYTHING AGAIN AND SHE WOULD HAVE HER DR LOOK AT IT AND GET BACK WITH ME. PATIENT IS STABLE TO GO THERE IF ACCEPTED DCP- Discharge Planning Updated by [id number]: Karlene Arriaza on 01/25/20 1:[address] CM CALLED [facility], [facility] [place], [facility], [facility]. ALL STATE THEY HAVE NO BEDE AVAILIBILITY, AND ARE UNSURE OF THE NEXT BED. [facility] AND [facility] STATES THEY ARE ON DIVERT AND CAN NOT ACCEPT ANY PSYCH TRANSFERS TO THE HOSPITAL. CM CALLED [facility] AND SPOKE TO WENDY AT [phone]. FAXED CLINCAL REFERRAL TO [phone]. WENDY ASKED THE DR COULD CALL DR AGUILAR AT [phone] FOR A DOC TO DOC. CM PROVIDED INFORMATION TO DR GORDON. CM WILL CONTINUE TO ASSIST IN DC PLANNING. KARLENE ARRIAZA DCP- Discharge Planning Updated by [id number]: Ann Marie Priscilla on 01/23/20 2:[address] Patient Name: NAHID ALARCON Admission Status: ER Accout number: [id number] Admission Date: 01-21-2020 : 1960 Admission Diagnosis: Attending: SALUD, Current LOS: 2 Anticipated DC Date: Planned Disposition: Primary Insurance: [place] Discharge Planning Comments: RECEIVED CALL BACK FROM [facility] AND THEY DECLINED DUE TO HIS MEDICAL ISSUES. COVID AND TOX SCREEN HAS BEEN ORDERED. Drywall Applicator: Ann Marie Wells Appended by Ann Marie Wells on 01/23/2020 15:51 CDT: SPOKE WITH [facility] AND FAXED DOCUMENTS TO THEM. WAITING CALL BACK FOR PLACEMENT. DCP- Discharge Planning Updated by [id number]: Ann Marie Wells on 01/23/20 12:[address] Patient Name: NAHID ALARCON Admission Status: ER Accout number: [id number] Admission Date: 01-21-2020 : 1960 Admission Diagnosis: Attending: SALUD, Current LOS: 2 Anticipated DC Date: Planned Disposition: Primary Insurance: MEDICAID [place] Discharge Planning Comments: REFERRAL FAXED TO [facility], SPOKE WITH LOUIS AT [facility] AND WAITING CALL BACK. Drywall Applicator: Ann Marie Wells Last DP export: 02/06/20 11:19 a Patient Name: NAHID ALARCON Page [id number] at 1030 All edits/amendments must be made on the electronic document DICTATION DATE: 02/09/20 1029 MINING CAPTAIN: JUNIOR 02/09/20 1029 RPT#: [id number] DC DATE: STATUS: ADM IN [facility] [address] [place] [address] END OF REPORT
--- NOTE | 2020-02-09 11:32 | NUR ---
PT ALERT X 4. BREATH SOUNDS CLEAR BILAT. TELEMETRY IN PLACE. IV TO RIGHT FOREARM, PATENT, DRESSING CDI. PT REPORTING NO PAIN AT THIS TIME. BED LOW, CALL LIGHT IN REACH. NO OTHER NEEDS AT THIS TIME.
[2020-02-09 12:39] VITALS: BP 124/58
[2020-02-09 18:45] VITALS: BP 134/71
[2020-02-09 20:00] VITALS: BP 114/66
--- NOTE | 2020-02-09 21:30 | NUR ---
LYING IN BED. ALERT AND ORIENTED X4. DENIES SUICIDAL THOUGHTS OR PLANS. 1:1 SITTER PRESENT. RESP EVEN AND NONLABORED. REPORTS ABD CRAMPING SINCE TAKING KAYEXELATE EARLIER. DRSG NOTED TO LT FOOT. BOTH FEET ARE SCALY AND DRY. AMB WITH CANE. SALINE LOCK NOTED TO RT FOREARM. DENIES NEEDS. NO DISTRESS. CL IN REACH.
[2020-02-10 04:00] VITALS: BP 115/73
--- NOTE | 2020-02-10 04:51 | NUR ---
HAS RESTED WELL THIS SHIFT. NO DISTRESS. SITTER IN LINE OF SIGHT. CL IN REACH.
[2020-02-10 05:20] LABS: BASOPHILS 0.3 % (0-2); EOSINOPHILS 4.8 % (0-7); HEMATOCRIT 38.4 % (42.0-54.0); HEMOGLOBIN 12.5 g/dL (13.5-17.5); IMMATURE GRANULOCYTES 0.1 % (0-5); LYMPHOCYTES 18.5 % (15-50); MCH 30.5 pg (26.0-34.0); MCHC 32.6 g/dL (31.0-37.0); MCV 93.7 fL (80.0-100.0); MEAN PLATELET VOLUME 10.9 fL (7.4-10.4); MONOCYTES 10.1 % (2-11); NEUTROPHILS 66.2 % (40-80); PLATELET COUNT 221 10x3/uL (130-400); RDW 13.2 % (11.5-14.5); WBC 7.4 10x3/uL (4.8-10.8)
[2020-02-10 05:36] LABS: ALBUMIN 3.1 g/dL (3.4-5.0); ANION GAP 10.7 mmol/L (8-16); BILIRUBIN - TOTAL 0.29 mg/dL (0.2-1.3); CALCIUM 8.4 mg/dL (8.5-10.1); CARBON DIOXIDE 24.9 mmol/L (21.0-32.0); CREATININE - SERUM 1.6 mg/dL (0.6-1.3); POTASSIUM - SERUM 4.6 mmol/L (3.5-5.1)
--- NOTE | 2020-02-10 07:45 | NUR ---
HE IS ALERT, ANSEWERS MY QUESTIONS. DENIES THOUGHTS OF HARMING HIMSELF. HE IS WATCHING TV, THE CALL LIGHT IS WITHIN REACH. THE BED ALARM IS ON AND HE HAS A SITTER.
[2020-02-10 09:13] VITALS: BP 155/78
[2020-02-10 10:56] VITALS: BP 152/64
--- NOTE | 2020-02-10 11:11 | PN ---
PATIENT:NAHID ALARCON MEDICAL RECORD: [id number] LOCATION:D.MS Head222 ADMISSION DATE: 01/21/20 PROGRESS NOTE DATE OF SERVICE: 02/09/2020 SUBJECTIVE: The patient's case was discussed with staff. He has no new complaint. OBJECTIVE: The patient denies intent to harm others, but he does endorse ongoing thoughts of wanting to . He does qualify at this time, saying it is his circumstances that are making him feel this way, but nevertheless, he does have those emotions. He has no problems with medications. He is tolerating them well. ASSESSMENT: Major depression. PLAN: The patient should be transferred to acute inpatient psychiatric care when medically stable. TRANSINT:[id number] Voice Confirmation ID: [id number] DOCUMENT ID: [id number] MARINO ROBERTS MD at 1111 CC: [id number] DICTATION DATE: 02/09/20 1557 PLUG WIRER: 02/10/20 0255 ADM IN [place] [address] [place] [address]
[2020-02-10 11:14] VITALS: BP 136/73
[2020-02-10] MEDS ORDERED: SEROQUEL25 MG PO (11:48)
[2020-02-10] MEDS ORDERED: GEODON20 M1 IM (11:48)
[2020-02-10] MEDS ORDERED: PROTONIX40 MG PO (11:48)
[2020-02-10] MEDS ORDERED: MIRALAX17 GM PO (11:48)
[2020-02-10] MEDS ORDERED: ISOSORBIDE DINI30 MG PO (11:48)
[2020-02-10] MEDS ORDERED: COREG12.5 MG PO (11:48)
[2020-02-10] MEDS ORDERED: ASPIRIN81 MG PO (11:48)
[2020-02-10] MEDS ORDERED: VELTASSA8.4 GM PO (11:48)
[2020-02-10] MEDS ORDERED: HUMALOG 30100 UNITS/ SC (11:48)
[2020-02-10] MEDS ORDERED: HALDOL5 MG/ML IM (11:48)
[2020-02-10] MEDS ORDERED: ALDACTONE25 MG PO (11:48)
[2020-02-10] MEDS ORDERED: CLOTRIM ANTIFUN15 GM TOPICAL (11:48)
[2020-02-10] MEDS ORDERED: EFFEXOR37.5 MG PO (11:48)
--- NOTE | 2020-02-10 13:01 | MORECARE ---
CASE MANAGEMENT DISCHARGE SUMMARY PATIENT: NAHID ALARCON UNIT: [id number] ADM DATE: 01/21/20 AGE: 59 : 64 SEX: M ROOM/BED: D.2229 AUTHOR: KEELY HITCHCOCK PHYSICIAN: REFERRING PHYSICIAN: RAÚL BRANNON MD DATE OF SERVICE: 02/10/20 Discharge Plan Patient Name: NAHID ALARCON Facility: [facility]:[place] : 1960 Planned Disposition: Anticipated Discharge Date: Discharge Date: Expected LOS: Initial Reviewer: [id number] Initial Review Date: 01/21/2020 Generated: 02/10/20 2:01 pm Comments DCP- Discharge Planning Updated by [email or web address]: Ann Marie Wells on 02/10/20 11:[address] Patient Name: NAHID ALARCON Admission Status: ER Accout number: [id number] Admission Date: 01-21-2020 : 1960 Admission Diagnosis:ATHSCL HEART DISEASE OF [place] COR ART W UNSTABLE ANG P Attending: SALUD, Current LOS: 20 Anticipated DC Date: Planned Disposition: Primary Insurance: [place] Discharge Planning Comments: SPOKE WITH DR. AGUILAR AT [facility] [place], SHE STATES NO BEDS BUT WILL HAVE SOME TODAY. FAXED UPDATES, WAITING CALL BACK WITH BED ASSIGNEMENT. Vallez Filter Operator: Ann Marie Wells DCP- Discharge Planning Updated by [email or web address]: Ann Marie Wells on 02/09/20 9:[address] Patient Name: NAHID ALARCON Admission Status: ER Accout number: [id number] Admission Date: 01-21-2020 : 1960 Admission Diagnosis:ATHSCL HEART DISEASE OF [place] ART W UNSTABLE ANG P Attending: SALUD, Current LOS: 19 Anticipated DC Date: Planned Disposition: Primary Insurance: [place]ID [place] Discharge Planning Comments: FAXED CLINICAL UPDATE TO [facility] [place]. WAITNG CALL BACK ABOUT PLACEMENT. Vallez Filter Operator: Ann Marie Wells DCP- Discharge Planning Updated by [id number]: Ann Marie Wells on 02/06/20 11:[address] Patient Name: NAHID ALARCON Admission Status: ER Accout number: [id number] Admission Date: 01-21-2020 : 1960 Admission Diagnosis:ATHSCL HEART DISEASE OF [place] ART W UNSTABLE ANG P Attending: SALUD, Current LOS: 16 Anticipated DC Date: Planned Disposition: Primary Insurance: [place] Discharge Planning Comments: FAXED UPDATE TO DR. AGUILAR AT [facility] [place] IN [facility] TO [phone]. WAITING CALL BACK TO SEE IF THEY WILL ACCEPT PATIENT YET. Vallez Filter Operator: Ann Marie Wells DCP- Discharge Planning Updated by [email or web address]: Tasneem Hansen on 02/02/20 9:[address] CM faxed required information through 02/01 to [facility] [place] (ph [phone], fx [phone]). Await CB. DCP- Discharge Planning Updated by [id number]: Ann Marie Wells on 01/30/20 2:[address] Patient Name: NAHID ALARCON Admission Status: ER Accout number: [id number] Admission Date: 01-21-2020 : 1960 Admission Diagnosis:ATHSCL HEART DISEASE OF [place] ART W UNSTABLE ANG P Attending: SALUD, Current LOS: 9 Anticipated DC Date: Planned Disposition: Primary Insurance: [place] Discharge Planning Comments: FAXED UPDATED CLINICALS TO DR. AGUILAR AT [facility] [place] AT [phone]. WAITING CALL BACK FROM [facility] [facility] IF THEY WILL ACCEPT. Vallez Filter Operator: Ann Marie Wells DCP- Discharge Planning Updated by [id number]: Monica Garcia on 01/27/20 1:[address] I HAVE CALLED [facility] [place] I SPOKE WITH MUMTAZ THE CHARGE NURSE IN THE ER ABOUT THE REFERRAL, SHE STATED TO SEND EVERYTHING AGAIN AND SHE WOULD HAVE HER DR LOOK AT IT AND GET BACK WITH ME. PATIENT IS STABLE TO GO THERE IF ACCEPTED DCP- Discharge Planning Updated by [id number]: Kam Arriaza on 01/25/20 1:[address] CM CALLED [facility], [facility] [place], [facility], [place]. ALL STATE THEY HAVE NO BEDE AVAILIBILITY, AND ARE UNSURE OF THE NEXT BED. [facility] AND [facility] STATES THEY ARE ON DIVERT AND CAN NOT ACCEPT ANY PSYCH TRANSFERS TO THE HOSPITAL. CM CALLED [facility] [place] AND SPOKE TO WENDY AT [phone]. FAXED CLINCAL REFERRAL TO [phone]. WENDY ASKED THE DR COULD CALL DR AGUILAR AT [phone] FOR A DOC TO DOC. CM PROVIDED INFORMATION TO DR GORDON. CM WILL CONTINUE TO ASSIST IN DC PLANNING. KAM ARRIAZA DCP- Discharge Planning Updated by [id number]: Ann Marie Wells on 01/23/20 2:[address] Patient Name: NAHID ALARCON Admission Status: ER Accout number: [id number] Admission Date: 01-21-2020 : 1960 Admission Diagnosis: Attending: SALUD, Current LOS: 2 Anticipated DC Date: Planned Disposition: Primary Insurance: [place] Discharge Planning Comments: RECEIVED CALL BACK FROM [facility] AND THEY DECLINED DUE TO HIS MEDICAL ISSUES. COVID AND TOX SCREEN HAS BEEN ORDERED. Vallez Filter Operator: Ann Marie Wells Appended by Ann Marie Wells on 01/23/2020 15:51 CDT: SPOKE WITH [facility] AND FAXED DOCUMENTS TO THEM. WAITING CALL BACK FOR PLACEMENT. DCP- Discharge Planning Updated by [id number]: Ann Marie Wells on 01/23/20 12:[address] Patient Name: NAHID ALARCON Admission Status: ER Accout number: [id number] Admission Date: 01-21-2020 : 1960 Admission Diagnosis: Attending: SALUD, Current LOS: 2 Anticipated DC Date: Planned Disposition: Primary Insurance: [place] Discharge Planning Comments: REFERRAL FAXED TO [facility], SPOKE WITH LOUIS AT [facility] AND WAITING CALL BACK. Vallez Filter Operator: Ann Marie Wells Last DP export: 02/09/20 9:30 a Patient Name: NAHID ALARCON Page [id number] at 1301 All edits/amendments must be made on the electronic document DICTATION DATE: 02/10/20 1301 PROOF OPERATOR: JUNIOR 02/10/20 1301 RPT#: [id number] DC DATE: STATUS: ADM IN [facility] [address] [place] [address] END OF REPORT
--- NOTE | 2020-02-10 17:06 | NUR ---
LEFT VIA EMS TO [facility]. SL TO THE RIGHT ARM FOR TRANSPORT.
--- NOTE | 2020-02-11 09:14 | MORECARE ---
CASE MANAGEMENT DISCHARGE SUMMARY PATIENT: NAHID ALARCON UNIT: [id number] ADM DATE: 01/21/20 AGE: 59 : 64 SEX: M ROOM/BED: D.2229 AUTHOR: KEELY HITCHCOCK PHYSICIAN: REFERRING PHYSICIAN: RAÚL BRANNON MD DATE OF SERVICE: 02/11/20 Discharge Plan Patient Name: NAHID ALARCON Facility: [facility]:[place] : 1960 Planned Disposition: Anticipated Discharge Date: Discharge Date: 02/10/2020 Expected LOS: Initial Reviewer: [id number] Initial Review Date: 01/21/2020 Generated: 02/11/20 10:14 am Comments DCP- Discharge Planning Updated by [email or web address]: Ann Marie Wells on 02/10/20 11:[address] Patient Name: NAHID ALARCON Admission Status: ER Accout number: [id number] Admission Date: 01-21-2020 : 1960 Admission Diagnosis:ATHSCL HEART DISEASE OF [place] ART W UNSTABLE ANG P Attending: SALUD, Current LOS: 20 Anticipated DC Date: Planned Disposition: Primary Insurance: MEDICAID [place] Discharge Planning Comments: SPOKE WITH DR. AGUILAR AT [facility] INPATIENT PSY[facility], SHE STATES NO BEDS BUT WILL HAVE SOME TODAY. FAXED UPDATES, WAITING CALL BACK WITH BED ASSIGNEMENT. Water Analyst: Ann Marie Wells DCP- Discharge Planning Updated by [email or web address]: Ann Marie Wells on 02/09/20 9:[address] Patient Name: NAHID ALARCON Admission Status: ER Accout number: [id number] Admission Date: 01-21-2020 : 1960 Admission Diagnosis:ATHSCL HEART DISEASE OF [place] ART W UNSTABLE ANG P Attending: SALUD, Current LOS: 19 Anticipated DC Date: Planned Disposition: Primary Insurance: [place]ID [place] Discharge Planning Comments: FAXED CLINICAL UPDATE TO [facility]. WAITNG CALL BACK ABOUT PLACEMENT. Water Analyst: Ann Marie Wells DCP- Discharge Planning Updated by [id number]: Ann Marie Wells on 02/06/20 11:[address] Patient Name: NAHID ALARCON Admission Status: ER Accout number: [id number] Admission Date: 01-21-2020 : 1960 Admission Diagnosis:ATHSCL HEART DISEASE OF [place] ART W UNSTABLE ANG P Attending: SALUD, Current LOS: 16 Anticipated DC Date: Planned Disposition: Primary Insurance: [place]ID [place] Discharge Planning Comments: FAXED UPDATE TO DR. AGUILAR AT [facility] IN [facility] TO [phone]. WAITING CALL BACK TO SEE IF THEY WILL ACCEPT PATIENT YET. Water Analyst: Ann Marie Wells DCP- Discharge Planning Updated by [id number]: Tasneem Hansen on 02/02/20 9:[address] CM faxed required information through 02/01 to [facility] (ph [phone], fx [phone]). Await CB. DCP- Discharge Planning Updated by [id number]: Ann Marie Wells on 01/30/20 2:[address] Patient Name: NAHID ALARCON Admission Status: ER Accout number: [id number] Admission Date: 01-21-2020 : 1960 Admission Diagnosis:ATHSCL HEART DISEASE OF [place] ART W UNSTABLE ANG P Attending: SALUD, Current LOS: 9 Anticipated DC Date: Planned Disposition: Primary Insurance: [place] Discharge Planning Comments: FAXED UPDATED CLINICALS TO DR. AGUILAR AT [facility] AT [phone]. WAITING CALL BACK FROM [facility] IF THEY WILL ACCEPT. Water Analyst: Ann Marie Wells DCP- Discharge Planning Updated by [email or web address]: Monica Garcia on 01/27/20 1:[address] I HAVE CALLED [facility] I SPOKE WITH MUMTAZ THE CHARGE NURSE IN THE ER ABOUT THE REFERRAL, SHE STATED TO SEND EVERYTHING AGAIN AND SHE WOULD HAVE HER DR LOOK AT IT AND GET BACK WITH ME. PATIENT IS STABLE TO GO THERE IF ACCEPTED DCP- Discharge Planning Updated by [id number]: Kam Arriaza on 01/25/20 1:[address] CM CALLED [facility], [facility] [place], [facility], [place]. ALL STATE THEY HAVE NO BEDE AVAILIBILITY, AND ARE UNSURE OF THE NEXT BED. [facility] AND [facility] STATES THEY ARE ON DIVERT AND CAN NOT ACCEPT ANY PSYCH TRANSFERS TO THE HOSPITAL. CM CALLED [facility] AND SPOKE TO WENDY AT [phone]. FAXED CLINCAL REFERRAL TO [phone]. WENDY ASKED THE DR COULD CALL DR AGUILAR AT [phone] FOR A DOC TO DOC. CM PROVIDED INFORMATION TO DR GORDON. CM WILL CONTINUE TO ASSIST IN DC PLANNING. KAM ARRIAZA DCP- Discharge Planning Updated by [id number]: Ann Marie Wells on 01/23/20 2:[address] Patient Name: NAHID ALARCON Admission Status: ER Accout number: [id number] Admission Date: 01-21-2020 : 1960 Admission Diagnosis: Attending: SALUD, Current LOS: 2 Anticipated DC Date: Planned Disposition: Primary Insurance: [place] Discharge Planning Comments: RECEIVED CALL BACK FROM [facility] AND THEY DECLINED DUE TO HIS MEDICAL ISSUES. COVID AND TOX SCREEN HAS BEEN ORDERED. Water Analyst: Ann Marie Wells Appended by Ann Marie Wells on 01/23/2020 15:51 CDT: SPOKE WITH [facility]SF[facility] AND FAXED DOCUMENTS TO THEM. WAITING CALL BACK FOR PLACEMENT. DCP- Discharge Planning Updated by [id number]: Ann Marie Wells on 01/23/20 12:[address] Patient Name: NAHID ALARCON Admission Status: ER Accout number: [id number] Admission Date: 01-21-2020 : 1960 Admission Diagnosis: Attending: SALUD, Current LOS: 2 Anticipated DC Date: Planned Disposition: Primary Insurance: [place]ID [place] Discharge Planning Comments: REFERRAL FAXED TO [facility], SPOKE WITH L[place] AT [facility] AND WAITING CALL BACK. Water Analyst: Ann Marie Wells Last DP export: 02/10/20 12:01 pm Patient Name: NAHID ALARCON Page [phone] at 0914 All edits/amendments must be made on the electronic document DICTATION DATE: 02/11/20913 OCCUPATIONAL THERAPIST'S ASSISTANT: JUNIOR 02/11/20913 RPT#: [id number] DC DATE:02/10/20 STATUS: DIS IN [facility] [address] [place] [address] END OF REPORT
== END 2020-02-10 17:07 | DRG 622 ==
LOC: D.ER 01:37 → D.M2 04:11 → D.ER 04:11 → D.MS 07:13 → OBSVTIME 07:48 → D.MS 16:51
PROVIDERS: Family Medicine; Family Medicine Adult Medicine; Internal Medicine Nephrology; ADMIT Family Medicine; ATTEND Family Medicine
PROC: 0JBR0ZZ Excision of Left Foot Subcutaneous Tissue and Fascia, Open Approach (ICD-10-PCS; principal; 2020-01-21)
DX: E11.621 Type 2 diabetes mellitus with foot ulcer (principal); I50.23 Acute on chronic systolic (congestive) heart failure; I25.110 Atherosclerotic heart disease of native coronary artery with unstable angina pectoris; I13.0 Hypertensive heart and chronic kidney disease with heart failure and stage 1 through stage 4 chronic kidney disease, or unspecified chronic kidney disease; R45.851 Suicidal ideations; N17.9 Acute kidney failure, unspecified; D64.9 Anemia, unspecified; E11.65 Type 2 diabetes mellitus with hyperglycemia; H54.7 Unspecified visual loss; I25.5 Ischemic cardiomyopathy; E78.5 Hyperlipidemia, unspecified; N18.9 Chronic kidney disease, unspecified; R07.9 Chest pain, unspecified

== ENCOUNTER 2020-02-25 03:45 | Emergency (ER) | payer MEDICAID ==
[~2020-02-25] VITALS: Ht 175.3 cm; Wt 96.8 kg
[~2020-02-25 03:45] MED LIST changes: +ASPIRIN81 MG PO; +CLOTRIM ANTIFUN15 GM TOPICAL; +EFFEXOR37.5 MG PO; +GEODON20 M1 IM; +HALDOL5 MG/ML IM; +HUMALOG 30100 UNITS/ SC; +ISOSORBIDE DINI30 MG PO; +MIRALAX17 GM PO; +PROTONIX40 MG PO; +SEROQUEL25 MG PO; +VELTASSA8.4 GM PO
[2020-02-25 03:51] VITALS: Ht 175.3 cm; Wt 96.8 kg
[2020-02-25 04:14] LABS: BASOPHILS 0.4 % (0-2); EOSINOPHILS 3.3 % (0-7); HEMATOCRIT 42.5 % (42.0-54.0); IMMATURE GRANULOCYTES 0.1 % (0-5); LYMPHOCYTES 22.2 % (15-50); MCH 30.8 pg (26.0-34.0); MCHC 32.9 g/dL (31.0-37.0); MCV 93.4 fL (80.0-100.0); MEAN PLATELET VOLUME 10.9 fL (7.4-10.4); MONOCYTES 7.8 % (2-11); NEUTROPHILS 66.2 % (40-80); PLATELET COUNT 223 10x3/uL (130-400); RBC 4.55 10x6/uL (4.20-6.10); RDW 13.1 % (11.5-14.5); WBC 7.5 10x3/uL (4.8-10.8)
[2020-02-25 04:16] LABS: CALC OSMOLALITY 283 mosm/kg (275-300); CALCIUM 8.6 mg/dL (8.5-10.1); CARBON DIOXIDE 29.1 mmol/L (21.0-32.0); CHLORIDE - SERUM 104 mmol/L (98-107); CREATININE - SERUM 1.5 mg/dL (0.6-1.3); GLUCOSE 114 mg/dL (74-106); SODIUM 138 mmol/L (136-145); UREA NITROGEN 32 mg/dL (7-18); eGFR NON AFRICAN AMERICAN 51 mL/min (90-120)
[2020-02-25 04:19] LABS: APTT 29.3 SECONDS (22.8-39.4); INR 0.96 (0.85-1.17); PROTIME 12.8 SECONDS (11.6-15.0)
[2020-02-25] MEDS ORDERED: COREG12.5 MG PO (04:28)
[2020-02-25] MEDS ORDERED: ISOSORBIDE DINI30 MG PO (04:28)
[2020-02-25 04:30] LABS: ALBUMIN 3.9 g/dL (3.4-5.0); ALKALINE PHOSPHATASE 122 U/L (30-120); ALT (SGPT) 31 U/L (10-68); BILIRUBIN - TOTAL 0.55 mg/dL (0.2-1.3); CKMB 3.1 U/L (0.0-3.6); CREATINE KINASE 166 UL (21-232); PROTEIN - SERUM 8.1 g/dL (6.4-8.2); TROPONIN-I 0.018 ng/mL (0.000-0.060)
[2020-02-25 05:21] VITALS: BP 158/73
[2020-02-25] MEDS ORDERED: VOLTAREN25 MG PO (23:32)
== END 2020-02-25 05:21 | disposition home or self-care (01) ==
LOC: D.ER 03:45
PROVIDERS: Emergency Medicine
DX: R07.9 Chest pain, unspecified (principal); I13.0 Hypertensive heart and chronic kidney disease with heart failure and stage 1 through stage 4 chronic kidney disease, or unspecified chronic kidney disease; E11.22 Type 2 diabetes mellitus with diabetic chronic kidney disease; N18.9 Chronic kidney disease, unspecified; I50.9 Heart failure, unspecified; I25.10 Atherosclerotic heart disease of native coronary artery without angina pectoris; Z59.0 Homelessness; Z91.14 Patient's other noncompliance with medication regimen

== ENCOUNTER 2020-02-25 22:18 | Emergency (ER) | payer MEDICAID ==
[~2020-02-25] VITALS: Ht 175.3 cm; Wt 104.5 kg
[2020-02-25 22:22] VITALS: Ht 175.3 cm; Wt 104.5 kg
[2020-02-25] MEDS ORDERED: VOLTAREN25 MG PO (23:32)
[2020-02-26 00:07] VITALS: BP 140/75
== END 2020-02-26 00:07 | disposition home or self-care (01) ==
LOC: D.ER 22:18
DX: M25.562 Pain in left knee (principal); G89.29 Other chronic pain; E11.9 Type 2 diabetes mellitus without complications; I11.0 Hypertensive heart disease with heart failure; I50.9 Heart failure, unspecified; Z95.1 Presence of aortocoronary bypass graft; Z79.4 Long term (current) use of insulin